=== PATIENT | female | born 1990 | race Caucasian/White ===

== ENCOUNTER 2025-04-04 04:06 | Observation (INO) ==
[2025-04-04] MEDS: ALBUT/IPRATROP 3MG/0.5MG NEB 3 ML VIAL NEB STA (04:32)
[2025-04-04 04:51] LABS: Hematocrit (blood only) 38.5 % (37.0-47.0); Hemoglobin 13.1 g/dl (12.0-16.0); Immature Granulocytes # (auto) 0.01 K/uL (0.01-0.20); Immature Granulocytes % (auto) 0.1 %; Mean Corpuscular Hemoglobin 29.7 pg (25.0-34.0); Mean Corpuscular Volume 87.3 fL (80.0-100.0); Platelet Count 370 K/uL (130-400); RDW Standard Deviation 37.4 fL (36.4-46.3); Red Blood Count 4.41 M/uL (4.20-5.40); White Blood Count 7.53 K/ul (4.8-10.8)
--- NOTE | 2025-04-04 04:56 | Emergency Department Note ---
Impression & Plan Asthma with exacerbation, Dyspnea ED Provider Note CHIEF COMPLAINT: Shortness of breath, wheezing HISTORY OF PRESENT ILLNESS: This 35-year-old female patient with past medical history of asthma who is normally on Symbicort for maintenance, but ran out of her inhaler presents to the emergency department via private vehicle for evaluation of shortness of breath and wheezing. Patient states symptoms started about 2 weeks ago. She recently moved here from [place]. The patient notes that she is an IV drug user (Cocaine) and is currently on antibiotics due to infections in her arms. The patient states she uses cocaine. Patient denies any fever. She has had some coughing. No chest pain. No abdominal pain, nausea, or vomiting. Patient denies any leg pain or swelling. No coughing up blood. No history of PE or DVT. Pt. has been using Albuterol without relief of her symptoms. History provided by: Patient REVIEW OF SYSTEMS: A 10 system review of systems was performed with positives and pertinent negatives listed in the history of present illness. All other systems were reviewed and are negative. ALLERGIES: NKDA PHYSICAL EXAM: VITALS: Vitals are noted on the nurse's note and reviewed by myself. GENERAL: This is a 35-year-old female, in no acute distress, nondiaphoretic, well-developed well-nourished. SKIN: Track treviño and shallow wounds on the bilateral anterior proximal forearms with no significant erythema or evidence of cellulitis. The skin was otherwise without rashes, erythema, edema, or bruising. There is no tenting of the skin. Capillary refill less than 2 seconds. HEAD: Normocephalic atraumatic. EYES: Conjunctivae without injection, sclerae without icterus. MOUTH: Mucous membranes moist. Tonsils are not enlarged. Pharynx without erythema or exudate. Uvula midline. Airway patent. Tongue does not deviate. NECK: Supple without nuchal rigidity. No lymphadenopathy. Cervical spine is nontender. No JVD. HEART: Regular rate and rhythm without murmurs gallops or rubs. LUNGS: Diffuse wheezing in all lung guzman. No retractions or accessory muscle use. Patient able to talk in complete sentences. ABDOMEN: Positive bowel sounds x 4. Soft, nontender, without masses or organomegaly. No guarding or rebound tenderness. MUSCULOSKELETAL: No muscle atrophy, erythema, or edema noted. Full range of motion without joint tenderness in all extremities. No tenderness to palpation. Normal gait. Strength 5/5 throughout. NEURO: Patient was alert and oriented to person place and time. No focal neurological deficits. An order was placed for continuous quality assurance monitor body. The monitor showed a normal sinus rhythm at a ventricular rate of 96 bpm, per my interpretation. EKG was reviewed by myself and found to be normal sinus rhythm at a rate of 91 beats per minute and per my interpretation reveals no ST elevation or depression. No T wave inversion. No prior EKG available for comparison. Imaging as interpreted by myself revealed no pneumonia, with radiologist interpretation as above. I agree with the radiologist's findings as based upon my independent interpretation. EMERGENCY DEPARTMENT COURSE: The patient was evaluated as above. The patient presents to the emergency department for shortness of breath and wheezing. She is an asthmatic and ran out of her Symbicort. Patient has not yet established with primary care. On examination, there is diffuse wheezing in all lung guzman. Patient O2 saturation 92 to 93% on room air. IV access obtained, labs were drawn. Patient was medicated with 125 mg IV Solu- Medrol, 1 g magnesium sulfate, DuoNeb treatment. Labs reviewed. Per my interpretation, no leukocytosis or anemia. No thrombocytopenia. hCG is negative. High-sensitivity troponin 4.7. Respiratory BioFire testing was completed and was negative. Chest x-ray, per my interpretation as above. No pneumonia. On reevaluation, the patient is about custodial through her magnesium infusion. She has had the Solu-Medrol and DuoNeb treatment. She remains diffusely wheezing with some rhonchi. O2 saturation is still 93% on room air. I did recommend additional medications. The patient was agreeable. Patient medicated with hour-long DuoNeb treatment. The case was signed out to Ro Mariscal PA-C pending re-evaluation after administration of hour long Duoneb treatment and Magnesium infusion. Please see her dictation regarding final disposition and plan. Case was discussed with the attending physician. I attest that I have personally reviewed the patient medication list. I attest that I have reviewed the patient's blood pressure and it was found to be elevated. Suspect this to be situational in nature. GCS: 15 In the evaluation and treatment of this patient the following differential diagnoses were entertained: Reactive airway disease, pneumonia, pneumothorax, COPD, CHF, infections, cardiac ischemia, pulmonary embolism, musculoskeletal, gastrointestinal, as well as other pathologies. The chart was completed utilizing [employer] Speech voice recognition software. Grammatical errors, random word insertions, pronoun errors, and incomplete sentences are an occasional consequence of this system due to software limitations, ambient noise, and hardware issues. Any formal questions or concerns about the content, text, or information contained within the body of this dictation should be directly addressed to the provider for clarification. Past Med/Surg History Problem List (Updated 04/04/25 @ 09:08 by Rishi Rosenberg MD) Skin ulcer of upper arm Eosinophilia Dyspnea (Acute) Asthma with exacerbation (Acute) Medical History (Updated 04/04/25 @ 09:08 by Rishi Rosenberg MD) HTN (hypertension) Depression History of hepatitis C IV drug abuse Tobacco dependence Asthma Surgical History (Updated 04/04/25 @ 08:59 by Rishi Rosenberg MD) No pertinent past surgical history Family History (Updated 04/04/25 @ 08:59 by Rishi Rosenberg MD) Denies family history of Asthma Social History (Updated 04/04/25 @ 09:01 by Rishi Rosenberg MD) Smoking Status: Unknown if ever smoked Tobacco Type: Cigarettes packs per day: 1; Hx Alcohol Use: No Hx Substance Use: Yes Non-Prescribed Medications: Crack / Cocaine and IV Drugs Last Used Substance: Days (ago) Last Used Substance Other:: 3 days ago Substance Use Type Other:: iv drug use Preferred Language: Faroese [employer] Supervisor Required: No Beliefs That Will Affect Care: None marital status: Single Current Living Situation: Significant Other current occupational status: unemployed How many Children do You have: 1 other: moved from [facility] to [place] to stay with girlfriend Feels Safe at Home: Yes Assistive Devices: None Allergies Allergies Allergy/AdvReac Type Severity Reaction Status Date / Time No Known Allergies Allergy Unverified 04/04/25 10:39 Results & Data (ED) Vital Signs Vital Signs - 24 hr 04/04/25 04:10 04/04/25 04:15 04/04/25 04:26 Temperature 36.5 C Temperature Source Temporal Artery Scan Pulse Rate 97 H 96 H Pulse Rate [Apical] Pulse Rate from SpO2 Sensor Pulse Rhythm [Apical] Respiratory Rate 28 H Respiratory Effort / Characteristics Respiratory Depth Respiratory Pattern Blood Pressure 145/91 H Blood Pressure [Right Arm] Blood Pressure Mean 109 Blood Pressure Mean [Right Arm] Pulse Oximetry 93 95 Oxygen Delivery Method Room Air Room Air Oxygen Flow Rate Sepsis Recent Fever Within 48 Hours No Sepsis New/Unexplained Change in Mental Status No Sepsis Action Taken by Nursing No Action Required 04/04/25 04:48 04/04/25 05:18 04/04/25 05:30 Temperature Temperature Source Pulse Rate 80 82 87 Pulse Rate [Apical] Pulse Rate from SpO2 Sensor 81 82 88 Pulse Rhythm [Apical] Respiratory Rate 24 14 14 Respiratory Effort / Characteristics Respiratory Depth Respiratory Pattern Blood Pressure 139/103 H 122/84 Blood Pressure [Right Arm] Blood Pressure Mean 115 96 Blood Pressure Mean [Right Arm] Pulse Oximetry 92 93 93 Oxygen Delivery Method Room Air Room Air Room Air Oxygen Flow Rate Sepsis Recent Fever Within 48 Hours Sepsis New/Unexplained Change in Mental Status Sepsis Action Taken by Nursing 04/04/25 05:45 04/04/25 05:45 04/04/25 06:00 Temperature Temperature Source Pulse Rate Pulse Rate [Apical] 81 83 Pulse Rate from SpO2 Sensor Pulse Rhythm [Apical] Regular Regular Respiratory Rate 17 20 Respiratory Effort / Characteristics Non-Labored Spontaneous Respiratory Depth Normal Respiratory Pattern Regular Blood Pressure Blood Pressure [Right Arm] 122/84 142/81 H Blood Pressure Mean Blood Pressure Mean [Right Arm] 96 101 Pulse Oximetry 93 93 93 Oxygen Delivery Method Room Air Room Air Room Air Oxygen Flow Rate 0 Sepsis Recent Fever Within 48 Hours Sepsis New/Unexplained Change in Mental Status Sepsis Action Taken by Nursing 04/04/25 07:00 04/04/25 07:00 04/04/25 07:00 Temperature Temperature Source Pulse Rate 76 75 Pulse Rate [Apical] Pulse Rate from SpO2 Sensor 74 74 Pulse Rhythm [Apical] Respiratory Rate 13 14 Respiratory Effort / Characteristics Respiratory Depth Respiratory Pattern Blood Pressure 131/79 Blood Pressure [Right Arm] Blood Pressure Mean 92 Blood Pressure Mean [Right Arm] Pulse Oximetry 97 97 Oxygen Delivery Method Oxygen Flow Rate Sepsis Recent Fever Within 48 Hours Sepsis New/Unexplained Change in Mental Status Sepsis Action Taken by Nursing 04/04/25 07:15 04/04/25 07:15 04/04/25 07:30 Temperature Temperature Source Pulse Rate 85 90 Pulse Rate [Apical] Pulse Rate from SpO2 Sensor 85 89 Pulse Rhythm [Apical] Respiratory Rate 18 18 Respiratory Effort / Characteristics Respiratory Depth Respiratory Pattern Blood Pressure 100/75 Blood Pressure [Right Arm] Blood Pressure Mean 83 Blood Pressure Mean [Right Arm] Pulse Oximetry 96 97 Oxygen Delivery Method Oxygen Flow Rate Sepsis Recent Fever Within 48 Hours Sepsis New/Unexplained Change in Mental Status Sepsis Action Taken by Nursing 04/04/25 07:30 04/04/25 07:57 04/04/25 08:00 Temperature Temperature Source Pulse Rate 108 H Pulse Rate [Apical] Pulse Rate from SpO2 Sensor 105 H Pulse Rhythm [Apical] Respiratory Rate 19 Respiratory Effort / Characteristics Respiratory Depth Respiratory Pattern Blood Pressure 128/81 137/86 Blood Pressure [Right Arm] Blood Pressure Mean 88 99 Blood Pressure Mean [Right Arm] Pulse Oximetry 93 Oxygen Delivery Method Oxygen Flow Rate Sepsis Recent Fever Within 48 Hours Sepsis New/Unexplained Change in Mental Status Sepsis Action Taken by Nursing 04/04/25 08:03 04/04/25 08:27 04/04/25 08:30 Temperature Temperature Source Pulse Rate 89 Pulse Rate [Apical] Pulse Rate from SpO2 Sensor 88 Pulse Rhythm [Apical] Respiratory Rate 15 14 Respiratory Effort / Characteristics Respiratory Depth Respiratory Pattern Blood Pressure 124/89 Blood Pressure [Right Arm] Blood Pressure Mean 99 Blood Pressure Mean [Right Arm] Pulse Oximetry 98 Oxygen Delivery Method Oxygen Flow Rate Sepsis Recent Fever Within 48 Hours Sepsis New/Unexplained Change in Mental Status Sepsis Action Taken by Nursing 04/04/25 08:42 Temperature Temperature Source Pulse Rate 86 Pulse Rate [Apical] Pulse Rate from SpO2 Sensor Pulse Rhythm [Apical] Respiratory Rate 22 Respiratory Effort / Characteristics Respiratory Depth Respiratory Pattern Blood Pressure Blood Pressure [Right Arm] Blood Pressure Mean Blood Pressure Mean [Right Arm] Pulse Oximetry Oxygen Delivery Method Oxygen Flow Rate Sepsis Recent Fever Within 48 Hours Sepsis New/Unexplained Change in Mental Status Sepsis Action Taken by Nursing Laboratory Data 04/04/25 04:15 04/04/25 04:15 Lab Results 04/04/25 04/04/25 Range/Units 04:15 04:49 WBC 7.53 (4.8-10.8) K/ul RBC 4.41 (4.20-5.40) M/uL Hgb 13.1 (12.0-16.0) g/dl Hct 38.5 (37.0-47.0) % MCV 87.3 (80.0-100.0) fL MCH 29.7 (25.0-34.0) pg MCHC 34.0 (32.0-36.0) g/dL RDW Std Deviation 37.4 (36.4-46.3) fL RDW Coeff of Annie 11.6 (11.5-14.5) % Plt Count 370 (130-400) K/uL MPV 9.4 (9.4-12.4) fL Immature Gran % (Auto) 0.1 % Neut % (Auto) 53.7 % Lymph % (Auto) 22.2 % Gilmer % (Auto) 6.5 % Eos % (Auto) 16.6 % Baso % (Auto) 0.9 % Neut # (Auto) 4.04 (1.40-6.50) K/uL Lymph # (Auto) 1.67 (1.20-3.40) K/uL Gilmer # (Auto) 0.49 (0.11-0.59) K/uL Eos # (Auto) 1.25 H (0.00-0.50) K/uL Baso # (Auto) 0.07 (0.00-0.20) K/uL Immature Gran # (Auto) 0.01 (0.01-0.20) K/uL Sodium 136 (136-145) mmol/L Potassium 3.4 L (3.5-5.1) mmol/L Chloride 102 (98-107) mmol/L Carbon Dioxide 25 (21-32) mmol/L Anion Gap 9 (3-11) BUN 10 (6-23) mg/dl Creatinine 0.76 (0.6-1.2) mg/dl Est Cr Clr Drug Dosing 109.4 ml/min eGFR 105.38 BUN/Creatinine Ratio 13.2 (10-20) Glucose 102 H (70-99(Fasting)) mg/dl Calcium 9.5 (8.6-10.3) mg/dl Total Bilirubin 0.3 (0.2-1.0) mg/dl AST 13 (13-39) U/L ALT 7 (7-52) U/L Alkaline Phosphatase 74 (34-104) U/L Troponin I High Sens 4.7 (0-14) pg/ml Total Protein 7.8 (6.0-8.3) gm/dl Albumin 4.0 (3.4-5.0) gm/dl Globulin 3.8 (2.5-4.0) gm/dl Albumin/Globulin Ratio 1.1 (0.9-2) HCG, Qual Negative (Negative) Adenovirus (PCR) Not Detected (NotDetected) B. pertussis DNA (PCR) Not Detected (NotDetected) B.parapertussis DNA PCR Not Detected (NotDetected) C. pneumoniae DNA (PCR) Not Detected (NotDetected) Coronavirus OC43 (PCR) Not Detected (NotDetected) Coronavirus HKU1 (PCR) Not Detected (NotDetected) Coronavirus 229E (PCR) Not Detected (NotDetected) SARS-CoV-2 (PCR) Not Detected (NotDetected) Coronavirus NL63 (PCR) Not Detected (NotDetected) Human Metapneumovir PCR Not Detected (NotDetected) Influenza Type A (PCR) Not Detected (NotDetected) Influenza Type B (PCR) Not Detected (NotDetected) M. pneumoniae (PCR) Not Detected (NotDetected) Parainfluenza 1 (PCR) Not Detected (NotDetected) Parainfluenza 2 (PCR) Not Detected (NotDetected) Parainfluenza 3 (PCR) Not Detected (NotDetected) Parainfluenza 4 (PCR) Not Detected (NotDetected) RSV (PCR) Not Detected (NotDetected) Entero/Rhino (PCR) Not Detected (NotDetected) Administered Medications Albuterol (Albut/Ipratrop 3mg/0.5mg Neb 3 Ml Vial) 3 ml NEB QIDR [facility]; Protocol Stop: 05/04/25 10:59 Last Admin: 04/04/25 17:57 Dose: 3 ml Documented By: Admin: 04/04/25 14:57 Dose: 3 ml Documented By: Admin: 04/04/25 11:27 Dose: 3 ml Documented By: CAP Aripiprazole (Aripiprazole 10 Mg Tab) 10 mg PO QAM [facility] Stop: 05/04/25 11:29 Last Admin: 04/04/25 11:31 Dose: 10 mg Documented By: CAP Buprenorphine/Naloxone (Buprenorphine/Naloxone 8/2 Mg Tab) 1 tab SL TID [facility] Stop: 05/04/25 10:59 Last Admin: 04/04/25 21:18 Dose: 1 tab Documented By: supriya Admin: 04/04/25 16:22 Dose: 1 tab Documented By: Admin: 04/04/25 11:30 Dose: 1 tab Documented By: TAMMY Cephalexin HCl (Cephalexin 500 Mg Cap) 500 mg PO QID [facility]; Protocol Stop: 04/11/25 08:59 Last Admin: 04/04/25 21:18 Dose: 500 mg Documented By: supriya Admin: 04/04/25 16:23 Dose: 500 mg Documented By: Admin: 04/04/25 11:26 Dose: 500 mg Documented By: TAMMY Doxycycline Hyclate (Doxycycline Hyclate 100 Mg Cap) 100 mg PO BID [facility] Stop: 04/11/25 08:59 Last Admin: 04/04/25 21:18 Dose: 100 mg Documented By: supriya Admin: 04/04/25 11:27 Dose: 100 mg Documented By: TAMMY Fluoxetine HCl (Fluoxetine Hcl 20 Mg Cap) 40 mg PO QAM [facility] Stop: 05/04/25 11:29 Last Admin: 04/04/25 11:32 Dose: 40 mg Documented By: TAMMY Fluticasone/Vilanterol (Fluticasone/Vilanterol 100/25mcg 14 Puffs/Inhaler) 1 puffs INH DAILY [facility] Stop: 05/04/25 11:29 Last Admin: 04/04/25 11:32 Dose: 1 puffs Documented By: TAMMY Guaifenesin (Guaifenesin 600 Mg Tabcr) 1,200 mg PO Q12 [facility] Stop: 05/04/25 11:29 Last Admin: 04/04/25 21:18 Dose: 1,200 mg Documented By: supriya Admin: 04/04/25 11:26 Dose: 1,200 mg Documented By: TAMMY Methylprednisolone 40 mg/ (Syringe) 0.64 mls @ 1.5 mls/min IV Q12H [facility] Stop: 05/04/25 11:59 Last Admin: 04/04/25 11:08 Dose: 1.5 mls/min Documented By: TAMMY Lisinopril (Lisinopril 10 Mg Tab) 10 mg PO QAM [facility] Stop: 05/04/25 11:29 Last Admin: 04/04/25 11:31 Dose: 10 mg Documented By: TAMMY Miscellaneous (Remove Nicoderm Patch) 1 each N/A DAILY@0859 [facility] Stop: 05/04/25 11:28 Last Admin: 04/04/25 11:42 Dose: Not Given Documented By: TAMMY Nicotine (Nicotine 21 Mg/24 Hr Tdsy) 1 patch TD QAM [facility] Stop: 05/04/25 11:29 Last Admin: 04/04/25 11:07 Dose: 1 patch Documented By: TAMMY Topiramate (Topiramate 25 Mg Tab) 25 mg PO HS JEFF Stop: 05/04/25 20:59 Last Admin: 04/04/25 21:18 Dose: 25 mg Documented By: supriya Discontinued Medications Albuterol (Albut/Ipratrop 3mg/0.5mg Neb 3 Ml Vial) 3 ml NEB NOW STA; Protocol Stop: 04/04/25 04:16 Last Admin: 04/04/25 04:32 Dose: 3 ml Documented By: CORY Albuterol (Albut/Ipratrop 3mg/0.5mg Neb 3 Ml Vial) 12 ml NEB ONE ONE; Protocol Stop: 04/04/25 06:22 Last Admin: 04/04/25 06:50 Dose: 12 ml Documented By: CORY Magnesium Sulfate/Dextrose (Magnesium Sulfate / D5w) 1 gm in 100 mls @ 100 mls/hr IV NOW STA Stop: 04/04/25 05:56 Last Infusion: 04/04/25 06:40 Dose: Infused Documented By: Admin: 04/04/25 05:40 Dose: 100 mls/hr Documented By: CORY Methylprednisolone (Methylprednisolone 125 Mg/2 Ml Vial) 125 mg IV NOW STA Stop: 04/04/25 04:53 Last Admin: 04/04/25 05:40 Dose: 125 mg Documented By: CORY Miscellaneous Information (Patient's Allergy Info Needs Entered) 1 each N/A NOW STA Stop: 04/04/25 09:29 Last Admin: 04/04/25 10:46 Dose: Not Given Documented By: TAMMY Miscellaneous Information (Patient's Allergy Info Needs Entered) 1 each N/A Q1H JEFF Stop: 04/04/25 12:31 Last Admin: 04/04/25 10:46 Dose: Not Given Documented By: TAMMY Potassium Chloride (Potassium Chloride 10 Meq Tabcr) 40 meq PO NOW STA Stop: 04/04/25 08:21 Last Admin: 04/04/25 09:07 Dose: 40 meq Documented By: KEVIN Imaging Data Radiologist's Impression: Chest X-Ray 04/04/25 04:15 EXAM: XR chest 1V portable CLINICAL HISTORY: Dyspnea TECHNIQUE: An X-ray image of the chest was obtained in the AP projection. COMPARISON: None. FINDINGS: The lungs are clear and well expanded, with no pulmonary infiltrate or pleural effusion. The cardiomediastinal silhouette is within normal limits. No acute osseous abnormality is identified. IMPRESSION: 1. No acute cardiopulmonary disease. Electronically signed by Lane Breen 04-04-2025 06:56 AM Discharge Plan Visit Data Chief Complaint: Shortness of Breath/Dyspnea Stated Complaint: SOB, ASTHMA ED Provider: Bree Roth ED Midlevel Provider: Ro Mariscal Discharge Problem: Asthma with exacerbation, Dyspnea Patient Disposition: Admitted As Inpatient Condition: Good Discharge Instructions Interventions: ED Discharge Assessment Last Done: 04/04/25 09:20
[2025-04-04 05:07] LABS: Alanine Aminotransferase 7.0 U/L (7-52); Albumin Level 4.0 gm/dl (3.4-5.0); Alkaline Phosphatase 74.0 U/L (34-104); Blood Urea Nitrogen 10.0 mg/dl (6-23); Calcium 9.5 mg/dl (8.6-10.3); Carbon Dioxide 25.0 mmol/L (21-32); Chloride 102.0 mmol/L (98-107); Creatinine Clr Calc Pharmacy 109.4 ml/min; Glucose 102.0 mg/dl (70-99(Fasting)); Potassium 3.4 mmol/L (3.5-5.1); Pregnancy Test, Serum Negative (Negative)
[2025-04-04 05:15] LABS: Albumin Globulin Ratio 1.1 (0.9-2); Anion Gap 9.0 (3-11); Bilirubin,Total 0.3 mg/dl (0.2-1.0); Globulin 3.8 gm/dl (2.5-4.0); Sodium 136.0 mmol/L (136-145); Total Protein 7.8 gm/dl (6.0-8.3)
[2025-04-04] MEDS: MAGNESIUM SULFATE / D5W 1 GM/100 ML BAG IV STA (05:40)
[2025-04-04 05:46] LABS: Chlamydia pneumoniae PCR Not Detected (NotDetected); Coronavirus 229E PCR Not Detected (NotDetected); Coronavirus CoV-2 (COVID19)PCR Not Detected (NotDetected); Coronavirus HKU1 PCR Not Detected (NotDetected); Coronavirus NL63 PCR Not Detected (NotDetected); Coronavirus OC43PCR Not Detected (NotDetected); Human Metapneumovirus PCR Not Detected (NotDetected); Parainfluenza Virus 1 PCR Not Detected (NotDetected); Parainfluenza Virus 2 PCR Not Detected (NotDetected); Parainfluenza Virus 3 PCR Not Detected (NotDetected); Parainfluenza Virus 4 PCR Not Detected (NotDetected); Respiratory Syncytial VirusPCR Not Detected (NotDetected); Rhinovirus/Enterovirus PCR Not Detected (NotDetected)
[2025-04-04] MEDS: ALBUT/IPRATROP 3MG/0.5MG NEB 3 ML VIAL NEB ONE (06:50)
--- NOTE | 2025-04-04 06:57 | XRay Report ---
EXAM: XR chest 1V portable CLINICAL HISTORY: Dyspnea TECHNIQUE: An X-ray image of the chest was obtained in the AP projection. COMPARISON: None. FINDINGS: The lungs are clear and well expanded, with no pulmonary infiltrate or pleural effusion. The cardiomediastinal silhouette is within normal limits. No acute osseous abnormality is identified. IMPRESSION: 1. No acute cardiopulmonary disease. Electronically signed by Lane Breen 04-04-2025 06:56 AM
--- NOTE | 2025-04-04 07:05 | Emergency Department Note ---
ED Visit Note The patient was signed out to me during shift change by Mey Ma PA-C at 07:00. In short the patient has a PMH of asthma and presents with SOB and wheezing. She is typically on Symbicort for maintenance but she is currently out of it. She has been using albuterol inhaler with minimal improvement. See Mey Ma PA-C note for the full workup and history. Upon shift change the patient had received 3 mL DuoNeb, 125 mg Solumedrol, 1g Mg, and a 12 ml DuoNeb. I reevaluated the patient who continues to have a diffuse expiratory wheeze. Patient also reports she is feeling better but she still does feel mildly shortness of breath and wheezing discomfort. Laboratory workup and chest x-ray show no acute abnormality. The patient has not improved with the outlined treatment and I do think would benefit from admission for continuous treatment overnight. Patient is agreeable to this plan. O2 saturation ranging from 90-96% on room air. All other vitals remained stable. The patient was admitted in stable condition. Consultation: On-call [facility] hospitalist - Presented the patient to the provider and discussed minimal improvement with the treatment plan. Patient does have a history of asthma and does appear to be having an exacerbation. Due to her presentation and minimal improvement I do believe that she would benefit from being admitted to medicine for continuous treatment overnight. Also discussed with them the patient's history of IV drug use with ulcerated wounds on the bilateral arms. They are agreeable to evaluating the patient and admitting her.
--- NOTE | 2025-04-04 09:05 | History & Physical Report ---
Date of Service April 04, 2025 Assessment & Plan (1) Asthma with exacerbation: (2) IV drug abuse: (3) Tobacco dependence: (4) History of hepatitis C: (5) Depression: (6) HTN (hypertension): (7) Eosinophilia: (8) Skin ulcer of upper arm: Plan 35yo female with history of asthma diagnosed ~2 years ago in [facility], IV drug abuse (cocaine), tobacco dependence, prior HepC infection s/p treatment, and HTN presents with 2 weeks of progressive cough, chest congestion, chest t ightness, wheezing, and shortness of breath - symptoms c/w asthma exacerbation. 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 #IV drug abuse with multiple ulcers b/l antecubital region with mild infection on right - -wound care consult for ulcers -keflex/doxy -limited u/s of right antecubital region to r/o abscess -was drug-free for about 2 years then had relapse #chronic suboxone use - -cont suboxone 8mg TID #HTN - -reportedly on HCTZ & lisinopril -cont lisinopril; hold HCTZ for now #tobacco dependence - -smoking cessation counseling -nicoderm patch 21mg/day #depression/anxiety - -cont topamax, prozac, abilify -psych consult to get her linked with local services -is from [facility], but planning to live in [facility] #h/o HepC infection - -s/p treatment -LFTs wnl -verbal consent obtained to perform HIV testing in am #hypokalemia - -replace with PO supplementation -repeat BMP am #eosinophilia - -recheck CBC w/ diff in am -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 given she is new to [place] (just moved from [facility]) will need application for Medicaid, new PCP, etc. place on observation status for now History of Present Illness Chief Complaint: cough, chest tightness, wheezing, shortness of breath Primary Care Provider: NO PCP 35yo female with history of asthma diagnosed ~2 years ago in [facility], IV drug abuse (cocaine), tobacco dependence, prior HepC infection s/p treatment, and HTN presents with 2 weeks of progressive cough, chest congestion, chest tightness, wheezing, and shortness of breath. She is now dyspneic with walking only short distances (10-15 feet or less). She denies having had URI symptoms except for sore throat due to coughing. No fevers. She had previously been on symbicort for maintenance treatment but ran out of such weeks ago. She has been using albuterol MDI at home without relief of symptoms. Additionally she just finished a course of amoxicillin TID for 2 weeks for skin infection of both elbow regions due to purulent drainage. This is the area where she typically injects IV cocaine. The purulence has improved with the amoxicillin. In the ER today she had IV solumedrol along with hour-long duoneb with some relief of symptoms. Allergies Allergy/AdvReac Type Severity Reaction Status Date / Time No Known Allergies Allergy Unverified 04/04/25 10:39 Past Med/Surg History Problem List (Updated 04/04/25 @ 09:08 by Rishi Rosenberg MD) Skin ulcer of upper arm Eosinophilia Dyspnea (Acute) Asthma with exacerbation (Acute) Medical History (Updated 04/04/25 @ 09:08 by Rishi Rosenberg MD) HTN (hypertension) Depression History of hepatitis C IV drug abuse Tobacco dependence Asthma Surgical History (Updated 04/04/25 @ 08:59 by Rishi Rosenberg MD) No pertinent past surgical history Family History (Updated 04/04/25 @ 08:59 by Rishi Rosenberg MD) Denies family history of Asthma Social History (Updated 04/04/25 @ 09:01 by Rishi Rosenberg MD) Smoking Status: Unknown if ever smoked Tobacco Type: Cigarettes packs per day: 1; Hx Alcohol Use: No Hx Substance Use: Yes Non-Prescribed Medications: Crack / Cocaine and IV Drugs Last Used Substance: Days (ago) Last Used Substance Other:: 3 days ago Substance Use Type Other:: iv drug use Preferred Language: [place] [employer] [employer] Required: No Beliefs That Will Affect Care: None marital status: Single Current Living Situation: Significant Other current occupational status: unemployed How many Children do You have: 1 other: moved from [facility] to [place] to stay with girlfriend Feels Safe at Home: Yes Assistive Devices: None Review of Systems Review of Systems: gen - no fevers or chills; eating normally HENT - mild sore throat, no URI symptoms otherwise CV - chest tightness from asthma flare pulm - cough, congestion, wheezing, dyspnea and MCMAHON GI - no nausea, vomiting, diarrhea, abd pain - no LUTS musculo - no joint pains skin - recent skin infection antecubital region b/l endo - no diabetes psych - depression/anxiety/drug abuse Physical Exam Physical Exam: gen - NAD, no respiratory distress, coughing at times eyes - PERRL HENT - Tms clear b/l; nose clear; mouth - poor dentition; MMM neck - no JVD, no lymph nodes, no goiter heart - tachy, s1 s2, no murmur lungs - diffuse wheezes b/l all lung segments; mildly decreased BS bases; no increased work of breathing abd - soft NT ND BS+; no HSM ext - no edema, pulses 2+ b/l skin - track treviño on feet; track treviño with ulcerations b/l antecubital regions, worse on right vs left; minimal purulent material in the ulcers on right; firm skin surrounding all of the ulcers b/l; no palpable abscess neuro - DTRs 2+ b/l upper & lower exts psych - a/o x 3, affect wnl Results & Data Results & Data Vital Signs (Past 12 Hours) Vital Signs Temp Pulse Pulse Resp BP BP Pulse Ox 04/04/25 08:42 86 22 04/04/25 08:30 124/89 04/04/25 08:27 14 04/04/25 08:03 89 15 98 04/04/25 08:00 137/86 04/04/25 07:57 108 H 19 93 04/04/25 07:30 128/81 04/04/25 07:30 90 18 97 04/04/25 07:15 100/75 04/04/25 07:15 85 18 96 04/04/25 07:00 75 14 97 04/04/25 07:00 131/79 04/04/25 07:00 76 13 97 04/04/25 06:00 83 20 142/81 H 93 04/04/25 05:45 81 17 122/84 93 04/04/25 05:45 93 04/04/25 05:30 87 14 122/84 93 04/04/25 05:18 82 14 93 04/04/25 04:48 80 24 139/103 H 92 04/04/25 04:26 96 H 04/04/25 04:15 95 04/04/25 04:10 36.5 C 97 H 28 H 145/91 H 93 O2 Del Method O2 Flow Rate 04/04/25 08:42 04/04/25 08:30 04/04/25 08:27 04/04/25 08:03 04/04/25 08:00 04/04/25 07:57 04/04/25 07:30 04/04/25 07:30 04/04/25 07:15 04/04/25 07:15 04/04/25 07:00 04/04/25 07:00 04/04/25 07:00 04/04/25 06:00 Room Air 04/04/25 05:45 Room Air 04/04/25 05:45 Room Air 0 04/04/25 05:30 Room Air 04/04/25 05:18 Room Air 04/04/25 04:48 Room Air 04/04/25 04:26 04/04/25 04:15 Room Air 04/04/25 04:10 Room Air Laboratory Results Laboratory Results - last 24 hr 04/04/25 04/04/25 04:15 04:49 WBC 7.53 RBC 4.41 Hgb 13.1 Hct 38.5 MCV 87.3 MCH 29.7 MCHC 34.0 RDW Std Deviation 37.4 RDW Coeff of Annie 11.6 Plt Count 370 MPV 9.4 Immature Gran % (Auto) 0.1 Neut % (Auto) 53.7 Lymph % (Auto) 22.2 Miller % (Auto) 6.5 Eos % (Auto) 16.6 Baso % (Auto) 0.9 Neut # (Auto) 4.04 Lymph # (Auto) 1.67 Miller # (Auto) 0.49 Eos # (Auto) 1.25 H Baso # (Auto) 0.07 Immature Gran # (Auto) 0.01 Sodium 136 Potassium 3.4 L Chloride 102 Carbon Dioxide 25 Anion Gap 9 BUN 10 Creatinine 0.76 Est Cr Clr Drug Dosing 109.4 eGFR 105.38 BUN/Creatinine Ratio 13.2 Glucose 102 H Calcium 9.5 Total Bilirubin 0.3 AST 13 ALT 7 Alkaline Phosphatase 74 Troponin I High Sens 4.7 Total Protein 7.8 Albumin 4.0 Globulin 3.8 Albumin/Globulin Ratio 1.1 HCG, Qual Negative Adenovirus (PCR) Not Detected B. pertussis DNA (PCR) Not Detected B.parapertussis DNA PCR Not Detected C. pneumoniae DNA (PCR) Not Detected Coronavirus OC43 (PCR) Not Detected Coronavirus HKU1 (PCR) Not Detected Coronavirus 229E (PCR) Not Detected SARS-CoV-2 (PCR) Not Detected Coronavirus NL63 (PCR) Not Detected Human Metapneumovir PCR Not Detected Influenza Type A (PCR) Not Detected Influenza Type B (PCR) Not Detected M. pneumoniae (PCR) Not Detected Parainfluenza 1 (PCR) Not Detected Parainfluenza 2 (PCR) Not Detected Parainfluenza 3 (PCR) Not Detected Parainfluenza 4 (PCR) Not Detected RSV (PCR) Not Detected Entero/Rhino (PCR) Not Detected Diagnostic Findings Chest X-Ray 04/04/25 04:15 EXAM: XR chest 1V portable CLINICAL HISTORY: Dyspnea TECHNIQUE: An X-ray image of the chest was obtained in the AP projection. COMPARISON: None. FINDINGS: The lungs are clear and well expanded, with no pulmonary infiltrate or pleural effusion. The cardiomediastinal silhouette is within normal limits. No acute osseous abnormality is identified. IMPRESSION: 1. No acute cardiopulmonary disease. Electronically signed by Lane Breen 04-04-2025 06:56 AM ECG Additional Comments: EKG - my reading - NSR, no ST changes PG Care Time/CCT Total # of Minutes Spent Total Time Spent with Patient: Total time spent is greater than 50% in coordination of care (as documented) at patient's floor/unit and/or counseling patient: Coding Level of Care Code 96628 INT INP/OBS CARE 3/75MIN Diagnoses Asthma with exacerbation J45.901 IV drug abuse F19.10 Tobacco dependence F17.200 History of hepatitis C Z86.19 Depression F32.A HTN (hypertension) I10 Eosinophilia D72.10 Skin ulcer of upper arm L98.A199
[2025-04-04] MEDS: POTASSIUM CHLORIDE 10 MEQ TABCR PO STA (09:07)
[2025-04-04] MEDS ORDERED: ACETAMINOPHEN 325 MG TAB PO PRN (09:20)
[2025-04-04] MEDS ORDERED: ONDANSETRON INJ 2 MG/ML 2 ML VIAL IV PRN (09:20)
[2025-04-04] MEDS ORDERED: MELATONIN 3 MG TAB PO PRN (09:20)
--- NOTE | 2025-04-04 09:49 | Electrocardiogram Report ---
Test Reason : Blood Pressure : */* mmHG Vent. Rate : 91 BPM Atrial Rate : 91 BPM P-R Int : 144 ms QRS Dur : 76 ms QT Int : 368 ms P-R-T Axes : 56 70 51 degrees QTcB Int : 452 ms Normal sinus rhythm Normal ECG No previous ECGs available Confirmed by Juan Lane ([id number]) on 04/04/2025 9:48:50 AM Referred By: REFERRED SELF Confirmed By: Juan Lane
--- NOTE | 2025-04-04 11:03 | Ultrasound Report ---
US extremity non-vascular ltd CLINICAL HISTORY: right antecubital region ulcers; abscess? COMPARISON STUDY: None FINDINGS: There is soft tissue edema in the region of the antecubital fossa with no abscess or hemato ma seen. IMPRESSION: No abscess seen. ACT 112: Negative or not required by law. Electronically signed by: Ludin Key M.D. 04/04/2025 11:02 AM
[2025-04-04] MEDS: NICOTINE 21 MG/24 HR TDSY TD SCH (11:07)
[2025-04-04] MEDS: guaiFENesin 600 MG TABCR PO SCH (11:26)
[2025-04-04] MEDS: DOXYCYCLINE HYCLATE 100 MG CAP PO SCH (11:27)
[2025-04-04] MEDS: ALBUT/IPRATROP 3MG/0.5MG NEB 3 ML VIAL NEB SCH (11:27)
[2025-04-04] MEDS: BUPRENORPHINE/NALOXONE 8/2 MG TAB SL SCH (11:30)
[2025-04-04] MEDS: FLUTICASONE/VILANTEROL 100/25MCG 14 PUFFS/INHALER INH SCH (11:32)
[2025-04-04] MEDS: REMOVE NICODERM PATCH SCH (11:42)
[2025-04-04] MEDS: TOPIRAMATE 25 MG TAB PO SCH (21:18)
[2025-04-05 04:20] VITALS: TEMP 97.7
[2025-04-05 07:07] LABS: Hematocrit (blood only) 37.1 % (37.0-47.0); Hemoglobin 12.4 g/dl (12.0-16.0); Immature Granulocytes # (auto) 0.17 K/uL (0.01-0.20); Immature Granulocytes % (auto) 1.0 %; Mean Corpuscular Hemoglobin 29.7 pg (25.0-34.0); Mean Corpuscular Volume 89.0 fL (80.0-100.0); Platelet Count 420 K/uL (130-400); RDW Standard Deviation 38.5 fL (36.4-46.3); Red Blood Count 4.17 M/uL (4.20-5.40); White Blood Count 17.17 K/ul (4.8-10.8)
[2025-04-05 07:33] LABS: Anion Gap 7.0 (3-11); Blood Urea Nitrogen 15.0 mg/dl (6-23); Calcium 9.8 mg/dl (8.6-10.3); Carbon Dioxide 25.0 mmol/L (21-32); Chloride 104.0 mmol/L (98-107); Creatinine Clr Calc Pharmacy 148.6 ml/min; Glucose 106.0 mg/dl (70-99(Fasting)); Potassium 4.6 mmol/L (3.5-5.1); Sodium 136.0 mmol/L (136-145)
[2025-04-05] MEDS: ENOXAPARIN INJ 40 MG/0.4 ML SYR SQ SCH (07:51)
[2025-04-05 08:42] LABS: Hemoglobin A1C 5.5 % (4.5-5.6)
[2025-04-05] MEDS: busPIRone 5 MG TAB PO SCH (09:14)
[2025-04-05] MEDS: BACLOFEN 10 MG TAB PO SCH (09:16)
[2025-04-05 11:18] VITALS: BP 121/79
[2025-04-05] MEDS: INFLUENZA VACC TS2025-26(6m+)/PF (IIV3) 0.5mL Syr IM ONE (12:56)
[2025-04-05 14:50] VITALS: PULSE 74; RESP 16; O2SAT 95
[2025-04-05] MEDS ORDERED: ALBUTEROL HFA 8 GM INHALER INH PRN (16:40)
--- NOTE | 2025-04-05 17:06 | Discharge Summary ---
Discharge Summary Date of Service date of admission - April 04, 2025 date of discharge - April 05, 2025 Principal Dx & Hospital Course #1 = Principal Diagnosis (1) Asthma with exacerbation: (2) IV drug abuse: (3) Tobacco dependence: (4) History of hepatitis C: (5) Depression: (6) HTN (hypertension): (7) Eosinophilia: (8) Skin ulcer of upper arm: Plan 35yo female with history of asthma diagnosed ~2 years ago in [facility], IV drug abuse (cocaine), tobacco dependence, prior HepC infection s/p treatment, and HTN presents with 2 weeks of progressive cough, chest congestion, chest tightness, wheezing, and shortness of breath - symptoms c/w asthma exacerbation. 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 -at discharge advised the following: -prednisone taper -albuterol via spacer device prn -Breo 1 puff daily for maintenance (we attempted to get samples for her until her insurance was activated in [place] but samples were not available) #IV drug abuse with multiple ulcers b/l antecubital region with mild infection on right - -wound care team was consulted -they advised for the antecubital regions b/l to use Aquacel Ag with Tegaderm dressings -change every 3 days -keflex/doxycycline courses were recommended; received ~2 days of both antibiotics here, then will complete 5 more days of such at home -limited u/s of right antecubital region did NOT show any abscess -unfortunately she had a relapse after a drug-free period of about 2 years -should f/u with the [facility] post-discharge to ensure healing #chronic suboxone use - -cont suboxone 8mg TID -recommended [facility] to obtain suboxone moving forward #HTN - -reportedly had been on HCTZ & lisinopril prior to this admission -was continued on lisinopril but her HCTZ was placed on hold while here & at discharge -BP was 121/79 at discharge #tobacco dependence - -smoking cessation counseling given -nicoderm patch 21mg/day used during the stay #depression/anxiety - -cont topsanthosh, zashanta, cruz -behavioral health liaison consult was obtained to get her linked with local services -is from [facility], but planning to live in [place] moving forward -once she has active Medicaid insurance in [place] she can get established with psychiatry locally #h/o HepC infection - -s/p treatment in the past -LFTs wnl during the stay -HIV testing was negative #hypokalemia - -replaced and level wnl on day of discharge #eosinophilia - -on initial CBC her eosinophils were 16.6% (1.25 #) -after 24 hours of steroid her eosinophils were nearly 0% -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 prednisone taper 2. doxycycline BID x 5 days 3. keflex TID x 5 days 4. Breo 1 puff daily 5. albuterol via spacer prn Admission HPI Per Admitting Provider 35yo female with history of asthma diagnosed ~2 years ago in [facility], IV drug abuse (cocaine), tobacco dependence, prior HepC infection s/p treatment, and HTN presents with 2 weeks of progressive cough, chest congestion, chest tightness, wheezing, and shortness of breath. She is now dyspneic with walking only short distances (10-15 feet or less). She denies having had URI symptoms except for sore throat due to coughing. No fevers. She had previously been on symbicort for maintenance treatment but ran out of such weeks ago. She has been using albuterol MDI at home without relief of symptoms. Additionally she just finished a course of amoxicillin TID for 2 weeks for skin infection of both elbow regions due to purulent drainage. This is the area where she typically injects IV cocaine. The purulence has improved with the amoxicillin. In the ER today she had IV solumedrol along with hour-long duoneb with some relief of symptoms. Discharge Exam gen - NAD, looks better today HENT - poor dentition; MMM neck - no JVD heart - RRR, s1 s2, no murmur lungs - diffuse wheezes b/l MUCH improved today; improved airation b/l bases; no increased work of breathing abd - soft NT ND BS+; no HSM ext - no edema, pulses 2+ b/l skin - track treviño with ulcerations b/l antecubital regions, worse on right vs left; minimal purulent material in the ulcers on right; firm skin surrounding all of the ulcers b/l; no palpable abscess psych - a/o x 3 Discharge Plan Discharge Items Patient Disposition: Home - Self-Care Reason For Visit: ASTHMA EXACERBATION Discharge Diagnosis: 1. asthma exacerbation - improved 2. skin ulcers both arms with possible infection 3. high blood pressure Condition on Discharge: Good Activity: As commented below Activity Comment: gradually increase your activities as tolerated over the next week Non-emergency contact: Primary Care Provider and Right Of Way Manager Call non-emergency contact if: you have any medication questions and your symptoms worsen Follow-up/Referrals: Brijesh Alvarez MD [Physician] - (we will make a referral to [facility] for you ) Reed Gunderson DO [Physician] - 04/10/25 11:00 am (*Hospital follow up appointment* You will need to schedule an establish care appointment when you go to your hospital follow up appointment) Diet: Regular Addtl Attending Provider Instructions: Ms Weeks, Freddie were hospitalized for an asthma exacerbation. You responded quickly to IV steroids, nebulizer treatments, and supportive care. Your wheezing improved and your shortness of breath is much better. In addition we had the wound care nurse see you for your ulcers on your arms. They are recommending dressing changes every 3 days. See their instructions on how to care for the ulcers on your arms. We did give you 2 antibiotics for the arms as there appeared to be some infection of the ulcers. Ultrasound of your right arm did not show an abscess. Recommendations - 1. prednisone course for the asthma - start TOMORROW, take with food 2. Breo inhaler - 1 puff once daily starting TOMORROW. Rinse your mouth with water after using it, then spit the water out. This is your asthma "controller agent" to help prevent asthma flare-ups 3. antibiotics for infection of arms - -cephalexin 500mg four times daily x 5 days; start in the morning -doxycycline 100mg twice daily x 5 days; start in the morning -most common side effect for each antibiotic - diarrhea -occasionally doxycycline causes stomach upset/reflux -rarely doxycycline can cause a rash if you go out in the sun while taking the antibiotic; thus, be sure to use sunscreen and cover up well over the next 7 days 4. albuterol inhaler - -use with plastic spacer device - see handout on how to use the spacer -you can take 2 puffs every 4 hours as needed for cough/wheezing/shortness of breath -as you recover over the next few days you may need to use the albuterol several times per day for your symptoms -as you resolve the illness the albuterol use will be less and less 5. please talk with your new family doctor about ways to help you quit smoking 6. there is a clinic in [place] called "[facility]" that may be able to prescribe your Suboxone for you. Here is the clinic contact information and address. You will need to call to schedule an appointment with them. [address], [address] [place], [place] [id number] 7. wound care for your arms - see separate section from the wound care nurse. You should follow-up with either the [facility] in [place] OR the [facility] in [place]. Ideally you see one of these clinics in the next 1-2 weeks. 8. To help secure insurance (Medicaid) in [place] please see the following. You also received a local phone number from our social workers to help with the insurance process. On your computer or phone please visit --> [email or web address] This is a website where you can apply for the insurance. Ultimately you will need to cancel your [facility] Medicaid. That phone number is [phone]. 9. We will try to get you an appointment with [facility] to follow your asthma. Return to [facility] if - -you have fevers over 100 degrees -your ulcers on your arms worsen despite the wound care and the antibiotics -your breathing worsens -you have severe diarrhea (3 or more liquid stools in 24 hours) -any other concerns It was our pleasure to care for you! Pending Studies at Discharge: No Stand-Alone Forms: [facility], Work/School Release, Smoking Cessation Medications and DC Order Prescriptions: New lisinopril 10 mg Tablet 10 mg PO QAM Qty: 1 0RF buprenorphine-naloxone 8-2 mg Tablet, Sublingual 1 tab sublingual TID Qty: 0 0RF fluticasone furoate-vilanterol [Breo Ellipta] 100-25 mcg/dose Blister With Device 1 inh inhalation DAILY Qty: 1 0RF topiramate 25 mg Tablet 25 mg PO HS Qty: 1 0RF albuterol sulfate [Ventolin HFA] 90 mcg/actuation HFA aerosol inhaler 2 inh inhalation Q4H PRN (Reason: shortness of breath or wheezing or cough) Qty: 6.7 0RF Rx Instructions: use with spacer device No Action buspirone 10 mg tablet 10 mg PO BID Qty: 180 1RF aripiprazole [Abilify] 10 mg tablet 10 mg PO QAM Qty: 90 1RF fluoxetine 40 mg capsule 40 mg PO QAM Qty: 90 1RF bupropion HCl 150 mg tablet extended release 24 hr 150 mg PO QAM Qty: 30 2RF Discharge Orders: Discharge Order (Routine); Ordered 04/05/25 Ordered By: Rishi Milan/Other Patient Handouts: Quitting Smoking, Understanding Asthma, Using an Inhaler with a Spacer, Asthma COPD Trigger Control, Controlling Your Asthma Admission Data Admit Date/Time: 04/04/25 08:55 Attending Provider: Rishi Rosenberg Admit Provider: Rishi Rosenberg Primary Care Provider: PCP,NO Other Providers: Rishi Rosenberg Other Interventions: Discharge Summary Assessment (RN) Last Done: 04/05/25 16:52 Hospital Stay Data Consultations Behavioral Health Liaison Diagnostic Imagining Performed Chest X-Ray 04/04/25 04:15 EXAM: XR chest 1V portable CLINICAL HISTORY: Dyspnea TECHNIQUE: An X-ray image of the chest was obtained in the AP projection. COMPARISON: None. FINDINGS: The lungs are clear and well expanded, with no pulmonary infiltrate or pleural effusion. The cardiomediastinal silhouette is within normal limits. No acute osseous abnormality is identified. IMPRESSION: 1. No acute cardiopulmonary disease. Electronically signed by Lane Breen 04-04-2025 06:56 AM Vascular Ultrasound 04/04/25 09:05 extremity non-vascular ltd CLINICAL HISTORY: right antecubital region ulcers; abscess? COMPARISON STUDY: None FINDINGS: There is soft tissue edema in the region of the antecubital fossa with no abscess or hematoma seen. IMPRESSION: No abscess seen. ACT 112: Negative or not required by law. Electronically signed by: Ludin Key M.D. 04/04/2025 11:02 AM Pending Results Patient Have Any Pending Studies at Discharge: No Discharge Instructions Given to Patient (Per Discharging Provider) Ms Weeks, Freddie were hospitalized for an asthma exacerbation. You responded quickly to IV steroids, nebulizer treatments, and supportive care. Your wheezing improved and your shortness of breath is much better. In addition we had the wound care nurse see you for your ulcers on your arms. They are recommending dressing changes every 3 days. See their instructions on how to care for the ulcers on your arms. We did give you 2 antibiotics for the arms as there appeared to be some infec tion of the ulcers. Ultrasound of your right arm did not show an abscess. Recommendations - 1. prednisone course for the asthma - start TOMORROW, take with food 2. Breo inhaler - 1 puff once daily starting TOMORROW. Rinse your mouth with water after using it, then spit the water out. This is your asthma "controller agent" to help prevent asthma flare-ups 3. antibiotics for infection of arms - -cephalexin 500mg four times daily x 5 days; start in the morning -doxycycline 100mg twice daily x 5 days; start in the morning -most common side effect for each antibiotic - diarrhea -occasionally doxycycline causes stomach upset/reflux -rarely doxycycline can cause a rash if you go out in the sun while taking the antibiotic; thus, be sure to use sunscreen and cover up well over the next 7 days 4. albuterol inhaler - -use with plastic spacer device - see handout on how to use the spacer -you can take 2 puffs every 4 hours as needed for cough/wheezing/shortness of breath -as you recover over the next few days you may need to use the albuterol several times per day for your symptoms -as you resolve the illness the albuterol use will be less and less 5. please talk with your new family doctor about ways to help you quit smoking 6. there is a clinic in [place] called "[facility]" that may be able to prescribe your Suboxone for you. Here is the clinic contact information and address. You will need to call to schedule an appointment with them. [address], [address] [place], [place] [id number] 7. wound care for your arms - see separate section from the wound care nurse. You should follow-up with either the [facility] in [place] OR the [facility] in [place]. Ideally you see one of these clinics in the next 1-2 weeks. 8. To help secure insurance (Medicaid) in [place] please see the following. You also received a local phone number from our social workers to help with the insurance process. On your computer or phone please visit --> [email or web address] This is a website where you can apply for the insurance. Ultimately you will need to cancel your [facility] Medicaid. That phone number is [phone]. 9. We will try to get you an appointment with [facility] to follow your asthma. Return to [facility] if - -you have fevers over 100 degrees -your ulcers on your arms worsen despite the wound care and the antibiotics -your breathing worsens -you have severe diarrhea (3 or more liquid stools in 24 hours) -any other concerns It was our pleasure to care for you! Total Time Total Time Spent Total Time Spent (In Minutes): 45 Coding Level of Care Code 66889 INP/OBS DISCH >30 MIN Diagnoses Asthma with exacerbation J45.901 IV drug abuse F19.10 Tobacco dependence F17.200 History of hepatitis C Z86.19 Depression F32.A HTN (hypertension) I10 Eosinophilia D72.10 Skin ulcer of upper arm L98.A199
== END 2025-04-05 17:48 | disposition home or self-care (01) ==
LOC: ED 04:06 → EDINP 04:06 → 2W 09:20
DX: J45.901 Unspecified asthma with (acute) exacerbation; Z86.19 Personal history of other infectious and parasitic diseases; I10 Essential (primary) hypertension; F32.A Depression, unspecified; L98.A11 Non-pressure chronic ulcer of right upper arm; F41.9 Anxiety disorder, unspecified; Z79.899 Other long term (current) drug therapy; F14.10 Cocaine abuse, uncomplicated; D72.10 Eosinophilia, unspecified; F17.210 Nicotine dependence, cigarettes, uncomplicated; L08.9 Local infection of the skin and subcutaneous tissue, unspecified; L98.A1 Non-pressure chronic ulcer of upper arm; E87.6 Hypokalemia

== ENCOUNTER 2025-05-13 14:51 | Inpatient (IN) ==
--- NOTE | 2025-05-13 15:11 | Emergency Department Note ---
Impression & Plan Open wound of arm, Abscess of arm, left ED Provider Note ED Provider Note NAME: SP GARCIA AGE:35 SEX: Female : 1990 ARRIVES VIA: POV INFORMANT: Patient ED PROVIDER(s): No mcdonald CHIEF COMPLAINT: cellulitis HPI: 35-year-old female presents emergency room with complaints of bilateral upper extremity cellulitis and possible abscesses. Patient states that she has been injecting cocaine and tasting the needle first. Patient states that she has had significant skin loss and open wounds for quite some time. Both antecubitals and some aspects of her wrist and back of hands have skin loss with superficial tissue erosion. There are quite a few areas that are scarred versus walled off abscess. Patient states she came in because it was all getting a lot worse and having redness and warmth. She states she subjectively had fevers and chills. She states she last used just prior to arrival in the emergency room. She is open to drug and alcohol rehab treatment options. PAST MEDICAL HISTORY:See Below PAST SURGICAL HISTORY:See Below FAMILY HISTORY:See Below SOCIAL HISTORY:See Below HOME MEDICATIONS:See Below ALLERGIES:See Below VITALS:See Below PHYSICAL EXAMINATION: GENERAL: alert, well appearing, well nourished, no distress, non-toxic EYE EXAM: normal conjunctiva, PERRL and EOM's grossly intact OROPHARYNX: no exudate, no erythema, lips, buccal mucosa, and tongue normal and mucous membranes are moist NECK: supple, no nuchal rigidity, no adenopathy, non-tender LUNGS: Clear to auscultation. Normal chest wall mechanics, no w/r/r HEART: no murmurs, S1 normal and S2 normal ABDOMEN: abdomen soft, non-tender, normo-active bowel sounds, no masses, no rebound or guarding. BACK: Back is symmetrical on inspection and there is no deformity, no midline tenderness, no CVA tenderness. SKIN: no rashes, petechiae, orbruising UPPER EXTREMITIES: upper extremities are grossly normal. FROM, nml pulses b/l. LOWER EXTREMITIES: No pitting edema. FROM, nml pulses b/l. NEURO EXAM: Normal sensorium, cranial nerves II-XII grossly intact, normal speech, no facial droop,nogross weakness of arms, no gross weakness of legs. Gross sensation intact. No ataxia. Vital Signs: reviewed and remarkable Differential Diagnosis: Contact dermatitis, viral exanthem, urticaria, allergic reaction, Hernandez- Braydon syndrome, toxic epidermal necrolysis, erythema multiforme, cellulitis, scabies, HSV, varicella, zoster, eczema, staph scalded skin syndrome, fungal infection, as well as other pathologies. MEDICAL DECISION MAKIN-year-old female presents emergency room with complaints of bilateral cellulitis. Does have an abscess in her left antecubital. Spoke with her about results and plan for admission given the cellulitis with the abscess adjacent to vessels and probable need for surgical consultation. I spoke with her about plan for wound care. She is agreeable to dispo to a detox or treatment program. Spoke with hospitalist, they will admit. Spoke with patient about results and plan, she is agreeable. Consultation(s): hospitalist ER Treatment Provided: See below Diagnostics Interpreted By Me: -ECG: EKG shows sinus tach at a rate of [address] changes, some ST flattening. -Cardiac Monitoring: An order was placed for continuous cardiac monitoring. The monitor shows a rate of [] with [] rhythm. -Laboratory studies: As stated above and show below. -Imaging studies: US shows complex collection L AC Triage Nursing Note Reviewed Prior/Outside Records Reviewed Past Med/Surg History Problem List (Updated 05/13/25 @ 18:50 by Ayse Mcdonald DO) Abscess of arm, left (Acute) Open wound of arm (Acute) Medical History (Updated 05/13/25 @ 18:50 by Ayse Mcdonald DO) Skin ulcer of upper arm Eosinophilia Asthma with exacerbation HTN (hypertension) Depression History of hepatitis C IV drug abuse Tobacco dependence Asthma Surgical History (Updated 04/11/25 @ 10:35 by Krista Simeon LPN) S/P appendectomy No pertinent past surgical history Family History (Updated 04/11/25 @ 10:36 by Krista Simeon LPN) Grandfather (Paternal) Breast cancer Denies family history of Ovarian cancer Prostate cancer Myocardial infarction Colorectal cancer Asthma Social History (Updated 04/16/25 @ 13:16 by Daxa Rudd) Smoking Status: Current every day smoker Tobacco Type: Cigarettes Age Started Using Tobacco: 16; packs per day: 0.5; Cigarettes Per Day: 10; Second Hand Exposure: Yes; Do You Dip or Chew Tobacco: No; Hx Alcohol Use: No Hx Substance Use: Yes Non-Prescribed Medications: Crack / Cocaine and IV Drugs Last Used Substance: Days (ago) Last Used Substance Other:: 3 days ago Substance Use Type Other:: iv drug use Preferred Language: Persian Communication Ability: Effective Visual Impairment: No Limitations Hearing Ability: Normal [employer] Required: No Beliefs That Will Affect Care: None marital status: Single Current Living Situation: Significant Other current occupational status: unemployed How many Children do You have: 1 other: moved from [facility] to [place] to stay with girlfriend Feels Safe at Home: Yes Childhood Exposure to Second-Hand Smoke: Yes Diet: regular caffeine: Yes during the past year weight has: increased > 10 lbs Dental Care, Regularly: No Physical Activity Frequency: Does not Exercise Seatbelt Use: always Sunscreen Use: Yes Assistive Devices: None Allergies Allergies Allergy/AdvReac Type Severity Reaction Status Date / Time No Known Allergies Allergy Verified 05/13/25 17:12 Home Meds Previous Rx's Medication Instructions Recorded albuterol sulfate 90 mcg/actuation 2 inh inhalation Q4H PRN shortness 04/05/25 aerosol inhaler (Ventolin HFA) of breath or wheezing or cough #6.7 grams buprenorphine 8 mg-naloxone 2 mg 1 tab sublingual TID #0 tabs 04/05/25 sublingual tablet fluticasone furoate 100 1 inh inhalation DAILY #1 ea 04/05/25 mcg-vilanterol 25 mcg/dose inhalation powder (Breo Ellipta) lisinopril 10 mg tablet 10 mg PO QAM #1 tab 04/05/25 topiramate 25 mg tablet 25 mg PO HS #1 tab 04/05/25 aripiprazole 10 mg tablet (Abilify) 10 mg PO QAM #90 tabs 04/10/25 bupropion HCl 150 mg 24 hr tablet, 150 mg PO QAM #30 tabs 04/10/25 extended release buspirone 10 mg tablet 10 mg PO BID #180 tabs 04/10/25 fluoxetine 40 mg capsule 40 mg PO QAM #90 caps 04/10/25 Results & Data (ED) Vital Signs Vital Signs - 24 hr 05/13/25 14:56 05/13/25 15:12 05/13/25 15:16 Temperature 36.7 C Temperature Source Temporal Artery Scan Pulse Rate 111 H 108 H 108 H Pulse Rate from SpO2 Sensor Respiratory Rate 20 24 Respiratory Effort / Characteristics Non-Labored Respiratory Depth Normal Blood Pressure 161/120 H 171/115 H Blood Pressure Mean 133 133 Pulse Oximetry 99 97 Oxygen Delivery Method Room Air Room Air Sepsis Recent Fever Within 48 Hours No Sepsis New/Unexplained Change in Mental Status No Sepsis Action Taken by Nursing No Action Required 05/13/25 16:42 05/13/25 16:45 05/13/25 17:00 Temperature Temperature Source Pulse Rate 90 87 83 Pulse Rate from SpO2 Sensor 92 H 88 84 Respiratory Rate 20 16 24 Respiratory Effort / Characteristics Respiratory Depth Blood Pressure 132/90 132/90 116/71 Blood Pressure Mean 104 104 86 Pulse Oximetry 95 95 94 Oxygen Delivery Method Room Air Room Air Room Air Sepsis Recent Fever Within 48 Hours Sepsis New/Unexplained Change in Mental Status Sepsis Action Taken by Nursing Laboratory Data 05/13/25 16:41 05/13/25 16:41 Lab Results 05/13/25 Range/Units 16:41 WBC 6.94 (4.8-10.8) K/ul RBC 4.04 L (4.20-5.40) M/uL Hgb 12.2 (12.0-16.0) g/dL Hct 35.2 L (37.0-47.0) % MCV 87.1 (80.0-100.0) fL MCH 30.2 (25.0-34.0) pg MCHC 34.7 (32.0-36.0) g/dL RDW Std Deviation 38.6 (36.4-46.3) fL RDW Coeff of Annie 11.9 (11.5-14.5) % Plt Count 396 (130-400) K/uL MPV 9.2 L (9.4-12.4) fL Immature Gran % (Auto) 0.3 % Neut % (Auto) 71.3 % Lymph % (Auto) 17.7 % [place] % (Auto) 4.5 % Eos % (Auto) 5.5 % Baso % (Auto) 0.7 % Neut # (Auto) 4.95 (1.40-6.50) K/uL Lymph # (Auto) 1.23 (1.20-3.40) K/uL [place] # (Auto) 0.31 (0.11-0.59) K/uL Eos # (Auto) 0.38 (0.00-0.50) K/uL Baso # (Auto) 0.05 (0.00-0.20) K/uL Immature Gran # (Auto) 0.02 (0.01-0.20) K/uL Platelet Estimate Increased H (Normal) Sodium 138 (136-145) mmol/L Potassium 3.8 (3.5-5.1) mmol/L Chloride 103 (98-107) mmol/L Carbon Dioxide 27 (21-32) mmol/L Anion Gap 8 (3-11) BUN 8 (6-23) mg/dl Creatinine 0.73 (0.6-1.2) mg/dl Est Cr Clr Drug Dosing 117.2 ml/min eGFR 110.60 BUN/Creatinine Ratio 11.0 (10-20) Glucose 103 H (70-99(Fasting)) mg/dl Calcium 9.7 (8.6-10.3) mg/dl Total Bilirubin 0.2 (0.2-1.0) mg/dl AST 11 L (13-39) U/L ALT 7 (7-52) U/L Alkaline Phosphatase 66 (34-104) U/L Total Protein 7.9 (6.0-8.3) gm/dl Albumin 4.1 (3.4-5.0) gm/dl Globulin 3.8 (2.5-4.0) gm/dl Albumin/Globulin Ratio 1.1 (0.9-2) Administered Medications Discontinued Medications Diphtheria/Pertussis/Tetanus Vacc (Diphther/Tetan/Pertus Vaccine (Tdap, Adol/Adult) 0.5ml) 0.5 ml IM .ONCE ONE Stop: 05/13/25 17:01 Last Admin: 05/13/25 17:50 Dose: 0.5 ml Documented By: SVETLANA Piperacillin Sod/Tazobactam Sod (Zosyn) 4.5 gm in 100 mls @ 200 mls/hr IV NOW ONE; Protocol Stop: 05/13/25 16:09 Last Infusion: 05/13/25 18:27 Dose: Infused Documented By: Admin: 05/13/25 16:51 Dose: 200 mls/hr Documented By: FRED Vancomycin HCl 2,250 mg/ (Sodium Chloride) 545 mls @ 200 mls/hr IV NOW ONE Stop: 05/13/25 18:23 Last Admin: 05/13/25 17:46 Dose: 200 mls/hr Documented By: SVETLANA Imaging Data Radiologist's Impression: Venous Doppler Study 05/13/25 15:31 Exam: Bilateral upper extremity venous Doppler. History: Intravenous drug use with bilateral upper extremity swelling and open wounds. Comparison:None. Findings: Right internal jugular, subclavian, axillary, cephalic, basilic, brachial, ulnar and radial veins demonstrate compression, augmentation and/or color flow. Edematous changes at the level of the right antecubital fossa. Reactive appearing lymph node proximal right forearm soft tissues. At the level of the left antecubital fossa there is a 2.4 x 0.8 x 2.5 cm somewhat lobulated hypoechoic through transmitting process demonstrating elements of internal echoes and vascularity. This is indeterminant. Impression: 1. No deep vein thrombosis. 2. Complex fluid collection left antecubital fossa. This is of uncertain etiology. Abscess is not excluded. Please see above for details. Electronically signed by Olivier Flores 05-13-2025 6:09 PM Discharge Plan Visit Data Chief Complaint: Arm Pain Stated Complaint: IV DRUG USER, ARM IS SWOLLEN AND INFECTION ED Provider: Ayse Mcdonald Discharge Problem: Open wound of arm, Abscess of arm, left Patient Disposition: Admitted As Inpatient Condition: Good Forms Stand Alone Forms: [facility] Prescriptions Prescriptions: No Action buspirone 10 mg tablet 10 mg PO BID Qty: 180 1RF aripiprazole [Abilify] 10 mg tablet 10 mg PO QAM Qty: 90 1RF fluoxetine 40 mg capsule 40 mg PO QAM Qty: 90 1RF bupropion HCl 150 mg tablet extended release 24 hr 150 mg PO QAM Qty: 30 2RF lisinopril 10 mg Tablet 10 mg PO QAM Qty: 1 0RF buprenorphine-naloxone 8-2 mg Tablet, Sublingual 1 tab sublingual TID Qty: 0 0RF fluticasone furoate-vilanterol [Breo Ellipta] 100-25 mcg/dose Blister With Device 1 inh inhalation DAILY Qty: 1 0RF topiramate 25 mg Tablet 25 mg PO HS Qty: 1 0RF albuterol sulfate [Ventolin HFA] 90 mcg/actuation HFA aerosol inhaler 2 inh inhalation Q4H PRN (Reason: shortness of breath or wheezing or cough) Qty: 6.7 0RF Rx Instructions: use with spacer device Referrals Referrals: Reed Gunderson DO [Primary Care Provider] -
[2025-05-13] MEDS ORDERED: VANCOMYCIN CONSULT ACTIVE PRN ×2 (15:40→21:52)
[2025-05-13] MEDS: PIPERACILLIN/TAZOBACTAM 4.5 GM/100 ML BAG IV ONE (16:51)
[2025-05-13 17:20] LABS: Alanine Aminotransferase 7.0 U/L (7-52); Albumin Globulin Ratio 1.1 (0.9-2); Albumin Level 4.1 gm/dl (3.4-5.0); Alkaline Phosphatase 66.0 U/L (34-104); Anion Gap 8.0 (3-11); Bilirubin,Total 0.2 mg/dl (0.2-1.0); Blood Urea Nitrogen 8.0 mg/dl (6-23); Calcium 9.7 mg/dl (8.6-10.3); Carbon Dioxide 27.0 mmol/L (21-32); Chloride 103.0 mmol/L (98-107); Creatinine Clr Calc Pharmacy 117.2 ml/min; Globulin 3.8 gm/dl (2.5-4.0); Glucose 103.0 mg/dl (70-99(Fasting)); Potassium 3.8 mmol/L (3.5-5.1); Sodium 138.0 mmol/L (136-145); Total Protein 7.9 gm/dl (6.0-8.3)
[2025-05-13 17:26] LABS: Hematocrit (blood only) 35.2 % (37.0-47.0); Hemoglobin 12.2 g/dL (12.0-16.0); Immature Granulocytes # (auto) 0.02 K/uL (0.01-0.20); Immature Granulocytes % (auto) 0.3 %; Mean Corpuscular Hemoglobin 30.2 pg (25.0-34.0); Mean Corpuscular Volume 87.1 fL (80.0-100.0); Platelet Count 396 K/uL (130-400); RDW Standard Deviation 38.6 fL (36.4-46.3); Red Blood Count 4.04 M/uL (4.20-5.40); White Blood Count 6.94 K/ul (4.8-10.8)
[2025-05-13] MEDS: VANCOMYCIN HCL 2,250 MG in SODIUM CHLORIDE 0.9% 500 ML IV ONE (17:46)
[2025-05-13] MEDS: DIPHTHER/TETAN/PERTUS Vaccine (Tdap, Adol/Adult) 0.5mL IM ONE (17:50)
--- NOTE | 2025-05-13 18:10 | Ultrasound Report ---
Exam: Bilateral upper extremity venous Doppler. History: Intravenous drug use with bilateral upper extremity swelling and open wounds. Comparison:None. Findings: Right internal jugular, subclavian, axillary, cephalic, basilic, brachial, ulnar and radial veins demonstrate compression, augmentation and/or color flow. Edematous changes at the level of the right antecubital fossa. Reactive appearing lymph node proximal right forearm soft tissues. At the level of the left antecubital fossa there is a 2.4 x 0.8 x 2.5 cm somewhat lobulated hypoechoic through transmitting process demonstrating elements of internal echoes and vascularity. This is indeterminant. Impression: 1. No deep vein thrombosis. 2. Complex fluid collection left antecubital fossa. This is of uncertain etiology. Abscess is not excluded. Please see above for details. Electronically signed by Olivier Flores 05-13-2025 6:09 PM
--- NOTE | 2025-05-13 18:37 | History & Physical Report ---
Date of Service May 13, 2025 Assessment & Plan (1) Abscess of arm, left: (2) Open wound of arm: (3) HTN (hypertension): (4) Asthma with exacerbation: (5) Depression: (6) History of hepatitis C: (7) IV drug abuse: (8) Tobacco dependence: (9) Asthma: (10) Skin ulcer of upper arm: Plan # bilateral skin ulceration with underlying fluid collection concerning for abscess - secondary to active IV drug use, start Zosyn and Vanco, wound care consult, surgery consult for debridement - serial inflammatory markers, CRP and procalcitonin - superficial cultures obtained in the emergency department - admit MedSurg, telemetry given history of substance abuse, monitoring for withdrawal #substance abuse - discusses 1 g cocaine use daily for the recent past. Last episode of sobriety was 2018 for the of a child - consult case management for outpatient abstinence resources - mostly neurovegetative symptoms and fatigue secondary to withdrawal from cocaine. No indication for benzodiazepine or other medications at this time - she does report using Suboxone. It is not in the PDMP in our system. Will establish with the clinic tomorrow for ongoing dosing #asthma - continue controller medication, DuoNeb and albuterol as needed as needed #hypertension - continue lisinopril #anxiety depression - continue BuSpar, fluoxetine, topiramate - U consult #FEN - heart healthy diet, normal saline at 100 cc/h through the night #CODE STATUS - full code per her wishes. Discussed with the patient at the bedside at the time of admission History of Present Illness Chief Complaint: Arm Sores Primary Care Provider: Reed Gunderson DO 35-year-old female history of recurrent relapsing substance abuse, cocaine dependence, anxiety, depression, mild asthma, hypertension presents to the emergency department with open wounds on the antecubital fossa of her arms bilaterally. Patient states she has been openly injecting liquid cocaine and her veins persistently for the last several weeks to months. She has been dealing with these wounds on and off through the wound care clinic for several months but states persistently they have gotten worse over the last several weeks. She is noticing pain in discomfort underneath the left side of her arm. She denies any fevers or chills nausea or vomiting. No generalized signs of illness. States she has previously been sober but not since 2019. She has previously followed with a detox and safe house program. She has not had any recent significant withdrawal symptoms other than fatigue for not using. She uses a controller inhaler regularly. Has not needed a rescue inhaler much. Otherwise no recent changes to medications. She does report Suboxone. It is not in the PDMP at this time. Initial evaluation in the emergency department shows open ulcerations on the antecubital fossa bilaterally with surrounding erythema induration and deep ulceration. She was referred for admission for IV antibiotics. Wound care consultation, surgical consultation for possible debridement. Case management consultation for abstinence and detox programs. Allergies Allergy/AdvReac Type Severity Reaction Status Date / Time No Known Allergies Allergy Verified 05/13/25 17:12 Home Medications Medication Instructions Recorded Confirmed Type albuterol sulfate 90 mcg/actuation 2 inh inhalation Q4H PRN shortness 04/05/25 05/13/25 Rx aerosol inhaler (Ventolin HFA) of breath or wheezing or cough #6.7 grams buprenorphine 8 mg-naloxone 2 mg 1 tab sublingual TID #0 tabs 04/05/25 05/13/25 Rx sublingual tablet fluticasone furoate 100 1 inh inhalation DAILY #1 ea 04/05/25 05/13/25 Rx mcg-vilanterol 25 mcg/dose inhalation powder (Breo Ellipta) lisinopril 10 mg tablet 10 mg PO QAM #1 tab 04/05/25 05/13/25 Rx topiramate 25 mg tablet 25 mg PO HS #1 tab 04/05/25 05/13/25 Rx aripiprazole 10 mg tablet (Abilify) 10 mg PO QAM #90 tabs 04/10/25 05/13/25 Rx bupropion HCl 150 mg 24 hr tablet, 150 mg PO QAM #30 tabs 04/10/25 05/13/25 Rx extended release buspirone 10 mg tablet 10 mg PO BID #180 tabs 04/10/25 05/13/25 Rx fluoxetine 40 mg capsule 40 mg PO QAM #90 caps 04/10/25 05/13/25 Rx Past Med/Surg History Problem List (Updated 05/13/25 @ 18:50 by Ayse Mcdonald DO) Abscess of arm, left (Acute) Open wound of arm (Acute) Medical History (Updated 05/13/25 @ 18:50 by Ayse A Mcdonald, DO) Skin ulcer of upper arm Eosinophilia Asthma with exacerbation HTN (hypertension) Depression History of hepatitis C IV drug abuse Tobacco dependence Asthma Surgical History (Updated 04/11/25 @ 10:35 by Krista Simeon LPN) S/P appendectomy No pertinent past surgical history Family History (Updated 04/11/25 @ 10:36 by Krista Simeon LPN) Grandfather (Paternal) Breast cancer Denies family history of Ovarian cancer Prostate cancer Myocardial infarction Colorectal cancer Asthma Social History (Updated 04/16/25 @ 13:16 by Daxa Rudd) Smoking Status: Current every day smoker Tobacco Type: Cigarettes Age Started Using Tobacco: 16; packs per day: 0.5; Cigarettes Per Day: 10; Second Hand Exposure: Yes; Do You Dip or Chew Tobacco: No; Hx Alcohol Use: No Hx Substance Use: Yes Non-Prescribed Medications: Crack / Cocaine and IV Drugs Last Used Substance: Days (ago) Last Used Substance Other:: 3 days ago Substance Use Type Other:: iv drug use Preferred Language: Latvian Communication Ability: Effective Visual Impairment: No Limitations Hearing Ability: Normal [employer] Required: No Beliefs That Will Affect Care: None marital status: Single Current Living Situation: Significant Other current occupational status: unemployed How many Children do You have: 1 other: moved from [facility] to [place] to stay with girlfriend Feels Safe at Home: Yes Childhood Exposure to Second-Hand Smoke: Yes Diet: regular caffeine: Yes during the past year weight has: increased > 10 lbs Dental Care, Regularly: No Physical Activity Frequency: Does not Exercise Seatbelt Use: always Sunscreen Use: Yes Assistive Devices: None Review of Systems Review of Systems: Aside from that noted in HPI a full 10 point review of systems conducted and was negative Physical Exam Constitutional: WD/WN, vitals as above Eyes: PERRL, conjunctivae normal, anicteric sclerae ENMT: external ear and nose normal, oropharynx normal several piercing Respiratory: good air movement throughout, wheezes on the expiratory phase right greater than left Cardiovascular: regular rate and rhythm no murmurs rubs or gallops Musculoskeletal: no lower extremity edema. There is no palpable adenopathy but tenderness in the axilla on the left. Skin: Scattered deep ulcerations with surrounding erythema in the antecubital fossa bilaterally with mucousy deep ulcerations into the dermal layers. No active bleeding. Scattered superficial ulcerations in the hands and forearms bilaterally. Neurologic: Alert and oriented, no apparent distress. No focal neurologic deficits. No dysmetria or dysarthria. Pupils equal round reactive to light. No nystagmus. No tremor. Reflexes normal Psychiatric: Orientation: alert and oriented x 3 Eye Contact: good eye contact Motor Behavior: steady gait and station Speech: normal rate/rhythm/volume of speech; no pressured speech and no loud speech Affect: euthymic affect Thought Process: goal directed thought process and linear/logical thought process Suicidal Thoughts: + reports suicidal thoughts Cognition: recent memory grossly intact Insight: good insight Results & Data Results & Data Vital Signs (Past 12 Hours) Vital Signs Temp Pulse Resp BP Pulse Ox O2 Del Method 05/13/25 17:00 83 24 116/71 94 Room Air 05/13/25 16:45 87 16 132/90 95 Room Air 05/13/25 16:42 90 20 132/90 95 Room Air 05/13/25 15:16 108 H 05/13/25 15:12 108 H 24 171/115 H 97 Room Air 05/13/25 14:56 36.7 C 111 H 20 161/120 H 99 Room Air Laboratory Results 05/13/25 16:41 Aerobic Blood Culture - Pending Blood Anaerobic Blood Culture - Pending 05/13/25 16:41 Aerobic Blood Culture - Pending Blood Anaerobic Blood Culture - Pending 05/13/25 16:41 WBC 6.94 RBC 4.04 L Hgb 12.2 Hct 35.2 L MCV 87.1 MCH 30.2 MCHC 34.7 RDW Std Deviation 38.6 RDW Coeff of Annie 11.9 Plt Count 396 MPV 9.2 L Immature Gran % (Auto) 0.3 Neut % (Auto) 71.3 Lymph % (Auto) 17.7 [place]ts % (Auto) 4.5 Eos % (Auto) 5.5 Baso % (Auto) 0.7 Neut # (Auto) 4.95 Lymph # (Auto) 1.23 Butts # (Auto) 0.31 Eos # (Auto) 0.38 Baso # (Auto) 0.05 Immature Gran # (Auto) 0.02 Platelet Estimate Increased H Sodium 138 Potassium 3.8 Chloride 103 Carbon Dioxide 27 Anion Gap 8 BUN 8 Creatinine 0.73 Est Cr Clr Drug Dosing 117.2 eGFR 110.60 BUN/Creatinine Ratio 11.0 Glucose 103 H Calcium 9.7 Total Bilirubin 0.2 AST 11 L ALT 7 Alkaline Phosphatase 66 Total Protein 7.9 Albumin 4.1 Globulin 3.8 Albumin/Globulin Ratio 1.1 Diagnostic Findings Venous Doppler Study 05/13/25 15:31 Exam: Bilateral upper extremity venous Doppler. History: Intravenous drug use with bilateral upper extremity swelling and open wounds. Comparison:None. Findings: Right internal jugular, subclavian, axillary, cephalic, basilic, brachial, ulnar and radial veins demonstrate compression, augmentation and/or color flow. Edematous changes at the level of the right antecubital fossa. Reactive appearing lymph node proximal right forearm soft tissues. At the level of the left antecubital fossa there is a 2.4 x 0.8 x 2.5 cm somewhat lobulated hypoechoic through transmitting process demonstrating elements of internal echoes and vascularity. This is indeterminant. Impression: 1. No deep vein thrombosis. 2. Complex fluid collection left antecubital fossa. This is of uncertain etiology. Abscess is not excluded. Please see above for details. Electronically signed by Olviier Flores 05-13-2025 6:09 PM PG Care Time/CCT Total # of Minutes Spent Total Time Spent with Patient: Total time spent is greater than 50% in coordination of care (as documented) at patient's floor/unit and/or counseling patient: Coding Level of Care Code 50051 INT INP/OBS CARE 2MIN Diagnoses Abscess of arm, left L02.414 Open wound of arm S41.109A HTN (hypertension) I10 Asthma with exacerbation J45.901 Depression F32.A History of hepatitis C Z86.19 IV drug abuse F19.10 Tobacco dependence F17.200 Asthma J45.909 Skin ulcer of upper arm L98.A199
[2025-05-13] MEDS: ALBUT/IPRATROP 3MG/0.5MG NEB 3 ML VIAL NEB STA (19:01)
[2025-05-13] MEDS ORDERED: MELATONIN 3 MG TAB PO PRN (21:52)
[2025-05-13] MEDS ORDERED: ACETAMINOPHEN 325 MG TAB PO PRN (21:52)
[2025-05-13] MEDS: SODIUM CHLORIDE 0.9% 1,000 ML IV SCH (22:11)
--- NOTE | 2025-05-13 22:12 | Surgery Consultation ---
Date of Consultation May 13, 2025 Assessment & Plan (1) Abscess of arm, left: Patient has been admitted on the hospitalist service. General surgery recommendations are as follows: Appears that the patient has a fluid collection in her left antecubital fossa based on her history this potentially represents an abscess. It does not appear that she has any drainable fluid collection/abscess in the right antecubital fossa She has been placed on broad-spectrum antibiotics in form of Zosyn and vancomycin which should continue. Appropriate cultures have been sent and these cultures can be utilized to tailor antibiotics when they are available The patient may require incision and drainage of her left antecubital fluid collection and therefore made her n.p.o. after midnight tonight. Patient is going to be evaluated by wound care nurse and general surgery attending on 05/14/2025 and determination will be made if patient will continue with local wound care or formal incision and drainage will be required At the time of my interview the patient was nontoxic-appearingthat she is normotensive without tachycardia or fever Additional recommendations will be forthcoming based on her clinical course as unfolds Supervising Physician Co-Signing Physician Notes Discussed with GIO overnight, labs and imaging reviewed, agree with above. History of IV drug abuse, with scabbing and sores at her antecubital fossa on b oth arms. Possible fluid collection on ultrasound on the left. Patient was admitted for IV antibiotics, potential I&D. Dr. Tolentino to assume care of the patient. History of Present Illness Reason for Consultation: Antecubital abscess Attending Physician: Rainer Saldivar MD History of Present Illness This is a 35 female who was admitted to the hospital today due to concerns for infections of her upper extremities. The patient notes that she has a history of injectable drug abuse. The patient notes that she injects cocaine and typically does this in her upper extremities and the hands as well as the antecubital fossa. She says i she has been doing this for a long time with her most recent drug injection earlier today. She notes that she has had some swelling of her left upper extremity and a worsening appearance of her antecubital fossa bilaterally prompting her visit to the hospital. Her records were reviewed and it does appear as though she was seen in the wound care center in March of this year at which time she had debridement of her antecubital fossa bilaterally. Patient says that this is the only time she had any type of surgical debridement or wound care at this nature. Patient has not any fevers but does admit to intermittent chills. She does not report any additional complaints. Consult Since arrival to the hospital this patient has had labs and imaging which I independent reviewed. Patient did have a venous Doppler study performed of her upper extremities bilaterally. This did not show any evidence of DVT [place] however the patient did have a complex fluid collection in the left antecubital fossa. No fluid collection was noted of the right antecubital fossa. Labs included CBC white blood cell count platelet count were normal. Hemoglobin was normal with a hematocrit of 35.2. Chemistry profile showed sodium and potassium as well as the BUN and creatinine were normal. At the time of my interview the patient was resting comfortably in bed and she was in no distress. Allergies Allergy/AdvReac Type Severity Reaction Status Date / Time No Known Allergies Allergy Verified 05/13/25 17:12 Home Medications Medication Instructions Recorded Confirmed Type albuterol sulfate 90 mcg/actuation 2 inh inhalation Q4H PRN shortness 04/05/25 05/13/25 Rx aerosol inhaler (Ventolin HFA) of breath or wheezing or cough #6.7 grams buprenorphine 8 mg-naloxone 2 mg 1 tab sublingual TID #0 tabs 04/05/25 05/13/25 Rx sublingual tablet fluticasone furoate 100 1 inh inhalation DAILY #1 ea 04/05/25 05/13/25 Rx mcg-vilanterol 25 mcg/dose inhalation powder (Breo Ellipta) lisinopril 10 mg tablet 10 mg PO QAM #1 tab 04/05/25 05/13/25 Rx topiramate 25 mg tablet 25 mg PO HS #1 tab 04/05/25 05/13/25 Rx aripiprazole 10 mg tablet (Abilify) 10 mg PO QAM #90 tabs 04/10/25 05/13/25 Rx bupropion HCl 150 mg 24 hr tablet, 150 mg PO QAM #30 tabs 04/10/25 05/13/25 Rx extended release buspirone 10 mg tablet 10 mg PO BID #180 tabs 04/10/25 05/13/25 Rx fluoxetine 40 mg capsule 40 mg PO QAM #90 caps 04/10/25 05/13/25 Rx Patient History Medical History Skin ulcer of upper arm Eosinophilia Asthma with exacerbation HTN (hypertension) Depression History of hepatitis C IV drug abuse Tobacco dependence Asthma Surgical History S/P appendectomy No pertinent past surgical history Family History Grandfather (Paternal) Breast cancer Denies family history of Ovarian cancer Prostate cancer Myocardial infarction Colorectal cancer Asthma Social History Smoking Status: Current every day smoker Tobacco Type: Cigarettes Age Started Using Tobacco: 16; packs per day: 0.5; Cigarettes Per Day: 1/2 pk; Second Hand Exposure: Yes; Do You Dip or Chew Tobacco: No; Tobacco Cessation Education Requested by Patient: No Hx Alcohol Use: No Hx Substance Use: Yes Non-Prescribed Medications: Crack / Cocaine and IV Drugs Last Used Substance: Just Prior to Arrival Last Used Substance Other:: crack cocaine at 1500 on 05/13/25; approx 1 gram/day Substance Use Type Other:: iv drug use Preferred Language: Portuguese Communication Ability: Effective Visual Impairment: No Limitations Hearing Ability: Normal Gear Inspector Required: No Beliefs That Will Affect Care: None marital status: Single Current Living Situation: Significant Other Current Living Situation Comment: lives with girlfriend current occupational status: unemployed How many Children do You have: 1 Other Information That Helps Us Care for You: No other: moved from [facility] to [place] to stay with girlfriend Feels Safe at Home: Yes Safety Concerns: Feels Safe At This Time Childhood Exposure to Second-Hand Smoke: Yes Diet: regular caffeine: Yes during the past year weight has: increased > 10 lbs Dental Care, Regularly: No Physical Activity Frequency: Does not Exercise Seatbelt Use: always Sunscreen Use: Yes Assistive Devices: None Review of Systems Review of Systems: All systems reviewed & are unremarkable except as noted in HPI & below Physical Exam Constitutional: WD/WN, vitals as above Eyes: no conjunctival abnormality ENMT: Ears: no hearing impairment Neck: trachea midline Respiratory: normal respiratory effort; no respiratory distress and no labored breathing Cardiovascular: Rate/Rhythm: regular rate and regular rhythm Musculoskeletal: The patient's upper extremities were examined bilaterally. There is some swelling of the patient's left upper arm above/proximal to antecubital fossa. There is no lymphatic streaking. The patient had several open areas of excoriation consistent with intravenous drug use in her antecubital fossa. There is some induration and fluctuance noted of this area. There is no crepitus in the soft tissue. The patient also had evidence of drug injection in her hands and forearms on this extremity. On the right upper extremity she again had multiple open areas of excoriation consistent with previous drug injection but there is no swelling of this extremity and no crepitus in the soft tissue. There is also no lymphatic streaking. There is no pain with passive range of motion of her elbows or wrists bilaterally. Skin: See above description Psychiatric: A+Ox3, euthymic affect Results & Data Vital Signs (Past 12 Hours) Vital Signs Temp Pulse Resp BP Pulse Ox O2 Del Method 05/13/25 20:06 81 14 114/73 95 Room Air 05/13/25 20:00 83 15 114/73 94 Room Air 05/13/25 19:03 76 05/13/25 18:42 85 24 130/93 90 Room Air 05/13/25 17:00 83 24 116/71 94 Room Air 05/13/25 16:45 87 16 132/90 95 Room Air 05/13/25 16:42 90 20 132/90 95 Room Air 05/13/25 15:16 108 H 05/13/25 15:12 108 H 24 171/115 H 97 Room Air 05/13/25 14:56 36.7 C 111 H 20 161/120 H 99 Room Air PG Care Time/CCT Total # of Minutes Spent Total Time Spent with Patient: Total time spent is greater than 50% in coordination of care (as documented) at patient's floor/unit and/or counseling patient: Coding Level of Care Code 49514 IN/OBS CONSULT LVL 5,80M Diagnoses Abscess of arm, left L02.414
[2025-05-13] MEDS: HEPARIN SOD 5,000 UNIT/0.5 ML VIAL SQ SCH (22:19)
[2025-05-13] MEDS: BUPRENORPHINE/NALOXONE 8/2 MG TAB SL SCH (22:19)
[2025-05-13] MEDS: busPIRone 5 MG TAB PO SCH (22:20)
[2025-05-13] MEDS: TOPIRAMATE 25 MG TAB PO SCH (22:21)
[2025-05-13] MEDS: PIPERACILLIN/TAZOBACTAM 4.5 GM/100 ML BAG IV SCH (22:29)
--- NOTE | 2025-05-13 23:27 | History & Physical Report ---
Date of Service May 13, 2025 Assessment & Plan Admission and Anticipated Discharge Date Admission Date: May 13, 2025 History of Present Illness Primary Care Provider: Reed Gunderson DO Allergies Allergy/AdvReac Type Severity Reaction Status Date / Time No Known Allergies Allergy Verified 05/13/25 17:12 Home Medications Medication Instructions Recorded Confirmed Type albuterol sulfate 90 mcg/actuation 2 inh inhalation Q4H PRN shortness 04/05/25 05/13/25 Rx aerosol inhaler (Ventolin HFA) of breath or wheezing or cough #6.7 grams buprenorphine 8 mg-naloxone 2 mg 1 tab sublingual TID #0 tabs 04/05/25 05/13/25 Rx sublingual tablet fluticasone furoate 100 1 inh inhalation DAILY #1 ea 04/05/25 05/13/25 Rx mcg-vilanterol 25 mcg/dose inhalation powder (Breo Ellipta) lisinopril 10 mg tablet 10 mg PO QAM #1 tab 04/05/25 05/13/25 Rx topiramate 25 mg tablet 25 mg PO HS #1 tab 04/05/25 05/13/25 Rx aripiprazole 10 mg tablet (Abilify) 10 mg PO QAM #90 tabs 04/10/25 05/13/25 Rx bupropion HCl 150 mg 24 hr tablet, 150 mg PO QAM #30 tabs 04/10/25 05/13/25 Rx extended release buspirone 10 mg tablet 10 mg PO BID #180 tabs 04/10/25 05/13/25 Rx fluoxetine 40 mg capsule 40 mg PO QAM #90 caps 04/10/25 05/13/25 Rx Past Med/Surg History Problem List Abscess of arm, left (Acute) Open wound of arm (Acute) Medical History Skin ulcer of upper arm Eosinophilia Asthma with exacerbation HTN (hypertension) Depression History of hepatitis C IV drug abuse Tobacco dependence Asthma Surgical History S/P appendectomy No pertinent past surgical history Family History Grandfather (Paternal) Breast cancer Denies family history of Ovarian cancer Prostate cancer Myocardial infarction Colorectal cancer Asthma Social History Smoking Status: Current every day smoker Tobacco Type: Cigarettes Age Started Using Tobacco: 16; packs per day: 0.5; Cigarettes Per Day: 10; Second Hand Exposure: Yes; Do You Dip or Chew Tobacco: No; Hx Alcohol Use: No Hx Substance Use: Yes Non-Prescribed Medications: Crack / Cocaine and IV Drugs Last Used Substance: Days (ago) Last Used Substance Other:: 3 days ago Substance Use Type Other:: iv drug use Preferred Language: Danish Communication Ability: Effective Visual Impairment: No Limitations Hearing Ability: Normal Internal Communications Specialist Required: No Beliefs That Will Affect Care: None marital status: Single Current Living Situation: Significant Other current occupational status: unemployed How many Children do You have: 1 other: moved from [facility] to [place] to stay with girlfriend Feels Safe at Home: Yes Childhood Exposure to Second-Hand Smoke: Yes Diet: regular caffeine: Yes during the past year weight has: increased > 10 lbs Dental Care, Regularly: No Physical Activity Frequency: Does not Exercise Seatbelt Use: always Sunscreen Use: Yes Assistive Devices: None Results & Data Results & Data Vital Signs (Past 12 Hours) Vital Signs Temp Pulse Resp BP Pulse Ox O2 Del Method 05/13/25 21:53 84 05/13/25 20:06 81 14 114/73 95 Room Air 05/13/25 20:00 83 15 114/73 94 Room Air 05/13/25 19:03 76 05/13/25 18:42 85 24 130/93 90 Room Air 05/13/25 17:00 83 24 116/71 94 Room Air 05/13/25 16:45 87 16 132/90 95 Room Air 05/13/25 16:42 90 20 132/90 95 Room Air 05/13/25 15:16 108 H 05/13/25 15:12 108 H 24 171/115 H 97 Room Air 05/13/25 14:56 36.7 C 111 H 20 161/120 H 99 Room Air Code Status & VTE Plan VTE Prophylaxis Plan VTE Prophylaxis will be ordered: Yes
[2025-05-14] MEDS: VANCOMYCIN HCL 1,500 MG in SODIUM CHLORIDE 0.9% 500 ML IV SCH (02:52)
[2025-05-14 06:50] LABS: Hematocrit (blood only) 31.8 % (37.0-47.0); Hemoglobin 10.8 g/dL (12.0-16.0); Immature Granulocytes # (auto) 0.01 K/uL (0.01-0.20); Immature Granulocytes % (auto) 0.1 %; Mean Corpuscular Hemoglobin 29.9 pg (25.0-34.0); Mean Corpuscular Volume 88.1 fL (80.0-100.0); Platelet Count 318 K/uL (130-400); RDW Standard Deviation 39.4 fL (36.4-46.3); Red Blood Count 3.61 M/uL (4.20-5.40); White Blood Count 7.53 K/ul (4.8-10.8)
[2025-05-14 07:08] LABS: Alanine Aminotransferase 6.0 U/L (7-52); Albumin Globulin Ratio 1.3 (0.9-2); Albumin Level 3.6 gm/dl (3.4-5.0); Alkaline Phosphatase 55.0 U/L (34-104); Anion Gap 6.0 (3-11); Bilirubin,Total 0.3 mg/dl (0.2-1.0); Blood Urea Nitrogen 11.0 mg/dl (6-23); Calcium 8.5 mg/dl (8.6-10.3); Carbon Dioxide 25.0 mmol/L (21-32); Chloride 108.0 mmol/L (98-107); Creatinine Clr Calc Pharmacy 84.7 ml/min; Globulin 2.8 gm/dl (2.5-4.0); Glucose 106.0 mg/dl (70-99(Fasting)); Magnesium 1.7 mg/dl (1.7-2.4); Potassium 3.9 mmol/L (3.5-5.1); Sodium 139.0 mmol/L (136-145); Total Protein 6.4 gm/dl (6.0-8.3)
[2025-05-14 07:24] LABS: INR 1.0 (0.9-1.1); Partial Thromboplastin Time 26 Seconds (21-31); Prothrombin Time 10.9 Seconds (9.0-12.0)
--- NOTE | 2025-05-14 07:58 | Pharmacy Report ---
Pharmacy PK ABX Note - Date of Service May 14, 2025 - Assessment and Plan Assessment 35 year old F receiving vancomycin/zosyn for abscess of arm/left. Surgery consulted for possible I&D. Blood cultures pending. PMHx significant fo IV drug abuse. Plan Vancomycin * Loading dose: 2250 mg IV x 1 * Maintenance dose: 1250 mg IV every 12 hours * Regimen is predicted to achieve target AUC/BARRERA of 400-600 mg/L.hr * Random vancomycin ordered for tomorrow to assess dosing. Pharmacy will continue to follow and will adjust dose/frequency as necessary. Thank you. Pharmacy has transitioned to AUC monitoring for vancomycin. AUC/BARRERA is the preferred PK/PD target and is associated with decreased risk of nephrotoxicity compared to traditional trough targets.
[2025-05-14] MEDS: ONDANSETRON INJ 2 MG/ML 2 ML VIAL IV PRN (09:36)
[2025-05-14] MEDS: REMOVE NICODERM PATCH SCH (09:37)
[2025-05-14] MEDS: NICOTINE 21 MG/24 HR TDSY TD SCH (09:37)
[2025-05-14] MEDS: FLUTICASONE/VILANTEROL 100/25MCG 14 PUFFS/INHALER INH SCH (09:38)
--- NOTE | 2025-05-14 12:15 | Hospitalist Progress Note ---
Date of Service May 14, 2025 Assessment & Plan (1) Abscess of arm, left: (2) Open wound of arm: (3) HTN (hypertension): (4) IV drug abuse: (5) Tobacco dependence: Plan This patient is a 35-year-old female with a history of substance use disorder (injectable cocaine, opioids, methamphetamine), depression/anxiety, HTN, asthma, and previously treated hepatitis C, who was admitted with bilateral wound infections in the antecubital fossae bilaterally. Venous Doppler of the bi lateral upper extremities negative for DVT but shows complex fluid collection left AC fossa 2.4 x 0.8 x 2.5 cm-possible abscess. No evidence of sepsis on admission, CRP mildly elevated, procalcitonin negative. #Bilateral skin ulceration with underlying fluid collection concerning for abscess- secondary to active IV drug use, possible developing abscess. No sepsis - Continue IV Zosyn and Vanco - Appreciate general surgery consultation-hold off on incision and drainage for now-Will see if more fluctuance comes to the surface for easier drainage - Wound care consult - Follow CBC, BMP in the a.m. - Follow wound cultures #substance abuse/anxiety/depression-injects cocaine mixed with water into her veins on a daily basis. Has been to rehab in the past and is interested in attending rehab and getting sober. She denies alcohol use or other drug use at this time but in the past has abused opioids and methamphetamines. She is on Suboxone and the dose was confirmed with her Suboxone clinic in [facility]. Last episode of sobriety was 2019 for the of a child - consult case management for outpatient abstinence resources - Consult psychiatry at patient's request - Continue Suboxone 8/2 mg SL 3 times daily-she actually takes 3-1/2 sublingual per day at home - continue BuSpar, fluoxetine, topiramate #asthma-no acute issues - continue controller medication, DuoNeb and albuterol as needed #hypertension-BP is controlled - continue lisinopril #Current smoker-continue nicotine patch and encourage cessation DVT prophylaxis-heparin SQ Disposition-continued stay but can downgrade off telemetry to medical/surgical floor Admission and Anticipated Discharge Date Admission Date: May 13, 2025 Subjective Patient feels like her arms look less red than when she came in but otherwise denies pain in the wounds of the arms. I did discuss her case with the surgery GIO. The patient reports she mixes cocaine with water to inject it in her veins. She is committed to going to rehab and quitting drug abuse. The nurse navigator was kind enough to contact the patient's Suboxone clinic who confirm her dose of Suboxone to be 8/2 mg 3-1/2 sublingual films daily Telemetry with normal sinus rhythm with rates in the 70s to 80s Physical Exam Constitutional: WD/WN, vitals as above Respiratory: normal respiratory effort, lungs clear to auscultation Cardiovascular: RRR, no murmur, no edema Gastrointestinal (Abdomen): normal bowel sounds, soft, nontender, no hepatosplenomegaly Skin: + lesion (Positive induration surroundin g left AC wound laterally, no fluctuance) and + ulcer (Bilateral AC fossa open wounds draining purulence, no erythema) Psychiatric: A+Ox3, euthymic affect Results & Data Results & Data Vital Signs (Past 12 Hours) Vital Signs Temp Pulse Pulse Resp BP Pulse Ox O2 Del Method 05/14/25 11:13 36.5 C 84 16 125/72 96 Room Air 05/14/25 10:00 Room Air 05/14/25 07:37 36.4 C L 85 16 108/54 L 95 Room Air 05/14/25 07:30 78 05/14/25 03:45 36.5 C 94 H 20 117/69 95 Room Air Laboratory Results CBC, CMP, magnesium, CRP, procalcitonin reviewed PG Care Time/CCT Total # of Minutes Spent Total Time Spent with Patient: Total time spent is greater than 50% in coordination of care (as documented) at patient's floor/unit and/or counseling patient: Coding Level of Care Code 66130 SUB INP/OBS CARE 3/50MIN Diagnoses Abscess of arm, left L02.414 Open wound of arm S41.109A HTN (hypertension) I10 IV drug abuse F19.10 Tobacco dependence F17.200
--- NOTE | 2025-05-14 12:58 | Surgery Progress Note ---
Date of Service May 14, 2025 Assessment & Plan (1) Open wound of arm: Plan: On the imaging the actual fluid collection area is extremely small. It is unclear to me even where it is at amongst all of the swelling and firmness. She does not have a fever and no leukocytosis and therefore I am simply going to observe for 24 to 48 hours on IV antibiotics. If things worsen I may re-image. We are certainly not out of the araya for an incision and drainage but I am going to opt for conservative management at this point in time until the abscess "declares" itself. (2) Abscess of arm, left: Admission and Anticipated Discharge Date Admission Date: May 13, 2025 Subjective Patient seen. Feeling slightly better than yesterday. No new complaints Physical Exam Constitutional: WD/WN, vitals as above no acute distress and not ill appearing Eyes: PERRL, conjunctivae normal, anicteric sclerae EOM intact bilaterally ENMT: external ear and nose normal, oropharynx normal Ears: no hearing impairment Neck: trachea midline, no thyromegaly Respiratory: normal respiratory effort; no respiratory distress and does not use accessory muscles Cardiovascular: Rate/Rhythm: regular rate and regular rhythm Gastrointestinal (Abdomen): normal bowel sounds, soft, nontender, no hepatosplenomegaly Skin: In the antecubital fossa left upper extremity there are multiple sinus tracts. There is no erythema or warmth. There is a horseshoe around the lateral aspect that is tender and firm. No true fluctuance. Psychiatric: Orientation: alert, oriented x 3 and cooperative Results & Data Vital Signs (Past 12 Hours) Vital Signs Temp Pulse Pulse Resp BP Pulse Ox O2 Del Method 05/14/25 11:13 36.5 C 84 16 125/72 96 Room Air 05/14/25 10:00 Room Air 05/14/25 07:37 36.4 C L 85 16 108/54 L 95 Room Air 05/14/25 07:30 78 05/14/25 03:45 36.5 C 94 H 20 117/69 95 Room Air PG Care Time/CCT Total # of Minutes Spent Total Time Spent with Patient: Total time spent is greater than 50% in coordination of care (as documented) at patient's floor/unit and/or counseling patient: Coding Level of Care Code 22277 SUB INP/OBS CARE 07/22MIN Diagnoses Open wound of arm S41.109A Abscess of arm, left L02.414
[2025-05-14] MEDS: VANCOMYCIN HCL 1,250 MG in SODIUM CHLORIDE 0.9% 250 ML IV SCH (15:00)
[2025-05-14] MEDS: LIDOCAINE 1%/EPINEPHRINE 1:100,000 50 ML VIAL INFIL ONE (19:08)
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
[2025-05-15 08:54] LABS: Hematocrit (blood only) 30.0 % (37.0-47.0); Hemoglobin 10.3 g/dL (12.0-16.0); Immature Granulocytes # (auto) 0.01 K/uL (0.01-0.20); Immature Granulocytes % (auto) 0.2 %; Mean Corpuscular Hemoglobin 30.3 pg (25.0-34.0); Mean Corpuscular Volume 88.2 fL (80.0-100.0); Platelet Count 305 K/uL (130-400); RDW Standard Deviation 38.7 fL (36.4-46.3); Red Blood Count 3.40 M/uL (4.20-5.40); White Blood Count 5.41 K/ul (4.8-10.8)
[2025-05-15 09:14] LABS: Alanine Aminotransferase 6.0 U/L (7-52); Albumin Globulin Ratio 1.2 (0.9-2); Albumin Level 3.6 gm/dl (3.4-5.0); Alkaline Phosphatase 52.0 U/L (34-104); Anion Gap 8.0 (3-11); Bilirubin,Total 0.2 mg/dl (0.2-1.0); Blood Urea Nitrogen 12.0 mg/dl (6-23); Calcium 8.9 mg/dl (8.6-10.3); Carbon Dioxide 25.0 mmol/L (21-32); Chloride 106.0 mmol/L (98-107); Creatinine Clr Calc Pharmacy 55.2 ml/min; Globulin 2.9 gm/dl (2.5-4.0); Glucose 152.0 mg/dl (70-99(Fasting)); Potassium 3.6 mmol/L (3.5-5.1); Sodium 139.0 mmol/L (136-145); Total Protein 6.5 gm/dl (6.0-8.3)
[2025-05-15] MEDS: LACTATED RINGER'S 1,000 ML IV SCH (10:46)
--- NOTE | 2025-05-15 10:49 | Hospitalist Progress Note ---
Date of Service May 15, 2025 Assessment & Plan (1) Abscess of arm, left: (2) Open wound of arm: (3) HTN (hypertension): (4) IV drug abuse: Plan This patient is a 35-year-old female with a history of substance use disorder (injectable cocaine, opioids, methamphetamine), depression/anxiety, HTN, asthma, and previously treated hepatitis C, who was admitted with bilateral wound infections in the antecubital fossae bilaterally. Venous Doppler of the bilateral upper extremities negative for DVT but shows complex fluid collection left AC fossa 2.4 x 0.8 x 2.5 cm-possible abscess. No evidence of sepsis on admission, CRP mildly elevated, procalcitonin negative. #Bilateral skin ulceration with underlying fluid collection concerning for abscess- secondary to active IV drug use, possible developing abscess. No sepsis. CRP trending down slightly to 1.7, remains afebrile, no leukocytosis, induration is decreasing but remains. Surgery wanted to hold off on incision and drainage for now but will reassess. Wound culture growing MSSA that is pans ensitive, blood cultures remain no growth to date. No physical evidence of endocarditis - DC IV Zosyn and Vanco and convert to IV cefazolin-can likely convert to p.o. Keflex on discharge - Appreciate general surgery consultation-awaiting reassessment on 05/15 to see if needs incision and drainage - Wound care consult appreciated-continue local wound care in hospital and as an outpatient at wound care center - Follow CBC, CMP, CRP in the a.m. - Follow blood cultures #substance abuse/anxiety/depression-injects cocaine mixed with water into her veins on a daily basis. Has been to rehab in the past and is interested in attending rehab and getting sober. She denies alcohol use or other drug use at this time but in the past has abused opioids and methamphetamines. She is on Suboxone and the dose was confirmed with her Suboxone clinic in [facility]. Last episode of sobriety was 2019 for the of a child - Consult case management for outpatient abstinence resources-they are helping to arrange inpatient rehab stay starting 05/28 at [place] - Consult psychiatry at patient's request-no changes to medications as per patient but awaiting formal consult - Continue Suboxone 8/2 mg SL 3 times daily-she actually takes 3-1/2 sublingual per day at home - Continue BuSpar, fluoxetine, topiramate #Acute kidney injury-creatinine up to 1.55. Possibly due to hypovolemia from being n.p.o. for possible surgery without receiving IV fluids. Also takes lisinopril. Did receive 2 days worth of vancomycin and Zosyn. - Give 1 L of LR - Follow BMP in the a.m. - Hold lisinopril #asthma-no acute issues - continue controller medication, DuoNeb and albuterol as needed - Encourage smoking cessation #hypertension-BP is controlled - continue lisinopril #Current smoker-continue nicotine patch and encourage cessation DVT prophylaxis-heparin SQ Disposition-continued stay on medical/surgical floor, possible DC in the next 1- 2 days if blood cultures remain negative, awaiting decision on incision and drainage by surgery, and if NATALIA resolves Admission and Anticipated Discharge Date Admission Date: May 13, 2025 Subjective Patient feeling better, thinks the swelling in the left arm is improved. Denies pain. She is committed to going to inpatient rehab but cannot go until May 28 as she needs to get back to work before then. She thinks she will be able to stay sober when she goes home as her girlfriend is also going to try to quit using drugs as well. I discussed her care with pharmacy. With regards to her anemia, patient denies heavy menses-she has bleeding for 3 to 4 days and is not heavy. No bleeding from anywhere else. She has never been told before that she was anemic Her right hand is more swollen today and there had been an IV in the right forearm that was removed. She does admit to injecting cocaine mixed with water and multiple sites in her hands and arms but not in her feet. Physical Exam Constitutional: WD/WN, vitals as above Respiratory: normal respiratory effort, lungs clear to auscultation Cardiovascular: RRR, no murmur, no edema Gastrointestinal (Abdomen): normal bowel sounds, soft, nontender, no hepatosplenomegaly Musculoskeletal: Right hand with significant edema, no erythema or drainage. With multiple small scabs from previous injection sites Skin: + lesion (Positive induration surroundin g left AC wound laterally, no fluctuance, imp) and + ulcer (Bilateral AC fossa open wounds draining purulence, no erythema) Psychiatric: A+Ox3, euthymic affect Results & Data Results & Data Vital Signs (Past 12 Hours) Vital Signs Temp Pulse Resp BP Pulse Ox O2 Del Method 05/15/25 07:56 36.5 C 77 18 127/87 94 Room Air Laboratory Results CBC, CMP, CRP, blood cultures, wound culture reviewed PG Care Time/CCT Total # of Minutes Spent Total Time Spent with Patient: Total time spent is greater than 50% in coordination of care (as documented) at patient's floor/unit and/or counseling patient: Coding Level of Care Code 94405 SUB INP/OBS CARE 2/35MIN Diagnoses Abscess of arm, left L02.414 Open wound of arm S41.109A HTN (hypertension) I10 IV drug abuse F19.10
--- NOTE | 2025-05-15 12:28 | Surgery Progress Note ---
Date of Service May 15, 2025 Assessment & Plan (1) Open wound of arm: Plan: Again I think this is more cellulitis than actual fluid collection. She is improving clinically. Continue IV antibiotics. No plans for surgical intervention. Likely discharge home tomorrow on oral antibiotics (2) Abscess of arm, left: Admission and Anticipated Discharge Date Admission Date: May 13, 2025 Subjective Patient seen. Continues to feel better every day. Much less pain in her antecubital fossa. Physical Exam Physical Exam: Alert no acute distress On the left antecubital fossa less erythema. It is still rather firm. Less tenderness. I am unable to express any fluid. Right antecubital fossa unchanged Results & Data Vital Signs (Past 12 Hours) Vital Signs Temp Pulse Resp BP Pulse Ox O2 Del Method 05/15/25 07:56 36.5 C 77 18 127/87 94 Room Air PG Care Time/CCT Total # of Minutes Spent Total Time Spent with Patient: Total time spent is greater than 50% in coordination of care (as documented) at patient's floor/unit and/or counseling patient: Coding Level of Care Code 23167 SUB INP/OBS CARE 07/22MIN Diagnoses Open wound of arm S41.109A Abscess of arm, left L02.414
--- NOTE | 2025-05-15 21:43 | Electrocardiogram Report ---
Test Reason : Blood Pressure : */* mmHG Vent. Rate : 102 BPM Atrial Rate : 102 BPM P-R Int : 152 ms QRS Dur : 80 ms QT Int : 348 ms P-R-T Axes : 43 65 36 degrees QTcB Int : 453 ms Sinus tachycardia Otherwise normal ECG When compared with ECG of 04-Apr-2025 04:25, No significant change was found Confirmed by Bob Rocha ([id number]) on 05/15/2025 9:43:31 PM Referred By: NO PCP Confirmed By: Bob Rocha
[2025-05-16 06:13] LABS: Hematocrit (blood only) 31.4 % (37.0-47.0); Hemoglobin 10.7 g/dL (12.0-16.0); Immature Granulocytes # (auto) 0.01 K/uL (0.01-0.20); Immature Granulocytes % (auto) 0.2 %; Mean Corpuscular Hemoglobin 29.8 pg (25.0-34.0); Mean Corpuscular Volume 87.5 fL (80.0-100.0); Platelet Count 338 K/uL (130-400); RDW Standard Deviation 39.1 fL (36.4-46.3); Red Blood Count 3.59 M/uL (4.20-5.40); White Blood Count 5.76 K/ul (4.8-10.8)
[2025-05-16 06:28] LABS: Alanine Aminotransferase 5.0 U/L (7-52); Albumin Globulin Ratio 1.2 (0.9-2); Albumin Level 3.7 gm/dl (3.4-5.0); Alkaline Phosphatase 47.0 U/L (34-104); Anion Gap 8.0 (3-11); Bilirubin,Total 0.2 mg/dl (0.2-1.0); Blood Urea Nitrogen 10.0 mg/dl (6-23); Calcium 9.4 mg/dl (8.6-10.3); Carbon Dioxide 26.0 mmol/L (21-32); Chloride 106.0 mmol/L (98-107); Creatinine Clr Calc Pharmacy 53.1 ml/min; Globulin 3.2 gm/dl (2.5-4.0); Glucose 90.0 mg/dl (70-99(Fasting)); Iron 46.0 mcg/dl (35-150); Potassium 3.9 mmol/L (3.5-5.1); Sodium 140.0 mmol/L (136-145); Total Iron Binding Cap Calc 315.0 mcg/dl (250-450); Total Protein 6.9 gm/dl (6.0-8.3); Transferrin 225.0 mg/dl (200-360); Transferrin (FE) Percent Satur 15.0 % (15-50)
[2025-05-16 06:42] LABS: Thyroid Stimulating Hormone 0.471 uIu/ml (0.300-4.500)
[2025-05-16 06:48] LABS: Ferritin 26.4 ng/ml (8-388)
[2025-05-16 06:56] LABS: Folate (Folic Acid),Ser orPlas 8.45 ng/ml (>5.38)
[2025-05-16 06:57] LABS: Vitamin B12 147.0 pg/ml (180-914)
[2025-05-16] MEDS: CYANOCOBALAMIN 1000 MCG/ML VIAL IM ONE (08:58)
[2025-05-16] MEDS: LACTATED RINGER'S 1,000 ML IV SCH (08:59)
[2025-05-16] MEDS: FERROUS GLUCONATE 324 MG TAB PO SCH (09:06)
--- NOTE | 2025-05-16 10:50 | Surgery Progress Note ---
Date of Service May 16, 2025 Assessment & Plan (1) Open wound of arm: Plan: Patients L antecubital region appears to be improving each day on IV abx WBC 5.7, afebrile Appreciate wound cares recommendations From our standpoint would complete a course of antibiotics for infection as this was likely more a cellulitis reaction; cultures growing staph aureus No plans for I&D at this time May d/c when cleared by medicine We will follow peripherally, please call with any questions/concerns. Admission and Anticipated Discharge Date Admission Date: May 13, 2025 Subjective Patient reports left forearm is feeling better and redness is also improving Physical Exam Physical Exam: awake, alert, no distress Skin: L forearm antecubital region w/ fading erythema, some induration noted superiorly but overall improved. tenderness improved. Results & Data Vital Signs (Past 12 Hours) Vital Signs Temp Pulse Resp BP Pulse Ox O2 Del Method 05/16/25 07:46 98.1 F 77 14 120/80 96 Room Air 05/15/25 23:00 98.2 F 82 14 132/88 95 Room Air PG Care Time/CCT Total # of Minutes Spent Total Time Spent with Patient: Total time spent is greater than 50% in coordination of care (as documented) at patient's floor/unit and/or counseling patient: Coding Level of Care Code 74805 SUB INP/OBS CARE 07/22MIN Diagnoses Open wound of arm S41.109A
[2025-05-16 15:57] LABS: Anion Gap 8.0 (3-11); Calcium 8.8 mg/dl (8.6-10.3); Carbon Dioxide 25.0 mmol/L (21-32); Chloride 105.0 mmol/L (98-107); Potassium 4.3 mmol/L (3.5-5.1); Sodium 138.0 mmol/L (136-145)
[2025-05-16 16:02] LABS: Blood Urea Nitrogen 11.0 mg/dl (6-23); Creatinine Clr Calc Pharmacy 50.0 ml/min; Glucose 97.0 mg/dl (70-99(Fasting))
--- NOTE | 2025-05-16 17:11 | Hospitalist Progress Note ---
Date of Service May 16, 2025 Assessment & Plan (1) Abscess of arm, left: (2) Open wound of arm: (3) B12 deficiency anemia: (4) Iron deficiency anemia: Plan This patient is a 35-year-old female with a history of substance use disorder (injectable cocaine, opioids, methamphetamine), depression/anxiety, HTN, asthma, and previously treated hepatitis C, who was admitted with bilateral wound infections in the antecubital fossae bilaterally. Venous Doppler of the bilateral upper extremities negative for DVT but shows complex fluid collection left AC fossa 2.4 x 0.8 x 2.5 cm-possible abscess. No evidence of sepsis on admission, CRP mildly elevated, procalcitonin negative. #Bilateral skin ulceration with underlying fluid collection concerning for abscess- secondary to active IV drug use, possible developing abscess. No sepsis. CRP continues to trend downward to 1.4, remains afebrile, no leukocytosis, induration is decreasing but remains, no erythema and drainage is decreasing. Surgery recommends against incision and drainage as seems to be improving with IV antibiotics alone. Wound culture growing MSSA that is pansensitive, but not finalized. Blood cultures remain no growth to date. No physical evidence of endocarditis. She was initially treated with IV Zosyn and Vanco and the end converted to IV cefazolin -Continue IV cefazolin for now and can convert to p.o. Augmentin on discharge to finish out a 10-day course - Appreciate general surgery consultation - Wound care consult appreciated-continue local wound care in hospital and as an outpatient at wound care center - Follow CBC, BMP in the a.m. - Follow blood cultures #substance abuse/anxiety/depression-injects cocaine mixed with water into her veins on a daily basis. Has been to rehab in the past and is interested in attending rehab and getting sober. She denies alcohol use or other drug use at this time but in the past has abused opioids and methamphetamines. She is on Suboxone and the dose was confirmed with her Suboxone clinic in [facility]. Last episode of sobriety was 2019 for the of a child - Consult case management for outpatient abstinence resources-they are helping to arrange inpatient rehab stay starting 05/28 at [place] - Consult psychiatry -no changes to medications at this time-defer to inpatient rehab where she will be going in 2 weeks - Continue Suboxone 8/2 mg SL 3 times daily-she actually takes 3-1/2 sublingual per day at home - Continue BuSpar, fluoxetine, topiramate, Abilify, Wellbutrin #Acute kidney injury-creatinine up further to 1.6 1 in the morning and after 1 L fluid, went up further to 1 point 7 in the afternoon. Initially thought to be possibly due to hypovolemia from being n.p.o. for possible surgery without receiving IV fluids on 05/14 but not improving with IV fluids. She did receive 2 days worth of vancomycin and Zosyn and perhaps could have drug-induced kidney injury? Also takes lisinopril which has now been held since 05/15. She is making urine and has no other electrolyte abnormalities. - Check postvoid residual bladder scan - Follow BMP again in the a.m. - Continue to hold lisinopril #Vitamin B12 and iron deficiency anemia-Hgb low but stable at 10.7. Iron studies show transferrin saturation low at 15%, ferritin low at 26, B12 very low at 147, and folate normal at 8.4. TSH normal at 0.47. No bleeding from anywhere - Start B12 1000 mcg IM x 1 followed by B12 1000 mcg p.o. once daily - Start ferrous gluconate 300 mg p.o. once daily - Follow as an outpatient - Consider GI referral as an outpatient but suspect this is likely a nutritional issue #asthma-no acute issues - continue controller medication, DuoNeb and albuterol as needed - Encourage smoking cessation #hypertension-BP is controlled - Hold lisinopril for NATALIA - Encouraged cocaine cessation as this could cause hypertension #Current smoker-continue nicotine patch and encourage cessation DVT prophylaxis-heparin SQ Disposition-continued stay on medical/surgical floor, possible DC tomorrow if NATALIA improving Admission and Anticipated Discharge Date Admission Date: May 13, 2025 Subjective Patient feels well, is voiding, eating and drinking like normal. Has no pain at the sites of her wounds in the arms. No other complaints. Physical Exam Constitutional: WD/WN, vitals as above Respiratory: normal respiratory effort, lungs clear to auscultation Cardiovascular: RRR, no murmur, no edema Gastrointestinal (Abdomen): normal bowel sounds, soft, nontender, no hepatosplenomegaly Skin: + lesion (Positive induration surroundin g left AC wound laterally improving) and + ulcer (Bilateral AC fossa open wounds draining purulence, no erythema) Psychiatric: A+Ox3, euthymic affect Results & Data Results & Data Vital Signs (Past 12 Hours) Vital Signs Temp Pulse Resp BP Pulse Ox O2 Del Method 05/16/25 16:00 36.8 C 82 16 125/86 96 Room Air 05/16/25 07:46 36.7 C 77 14 120/80 96 Room Air Laboratory Results CBC, BMP x 2, TSH, iron studies, B12, folate, LFTs, CRP reviewed PG Care Time/CCT Total # of Minutes Spent Total Time Spent with Patient: Total time spent is greater than 50% in coordination of care (as documented) at patient's floor/unit and/or counseling patient: Coding Level of Care Code 42879 SUB INP/OBS CARE 2/35MIN Diagnoses Abscess of arm, left L02.414 Open wound of arm S41.109A B12 deficiency anemia D51.9 Iron deficiency anemia D50.9
[2025-05-17 06:11] LABS: Anion Gap 8.0 (3-11); Blood Urea Nitrogen 11.0 mg/dl (6-23); Calcium 9.6 mg/dl (8.6-10.3); Carbon Dioxide 27.0 mmol/L (21-32); Chloride 105.0 mmol/L (98-107); Creatinine Clr Calc Pharmacy 54.1 ml/min; Glucose 87.0 mg/dl (70-99(Fasting)); Potassium 4.0 mmol/L (3.5-5.1); Sodium 140.0 mmol/L (136-145)
[2025-05-17 07:29] LABS: Hematocrit (blood only) 32.1 % (37.0-47.0); Hemoglobin 11.0 g/dL (12.0-16.0); Mean Corpuscular Hemoglobin 30.2 pg (25.0-34.0); Mean Corpuscular Volume 88.2 fL (80.0-100.0); RDW Standard Deviation 39.7 fL (36.4-46.3); Red Blood Count 3.64 M/uL (4.20-5.40); White Blood Count 5.45 K/ul (4.8-10.8)
[2025-05-17 07:37] LABS: Platelet Count 318 K/uL (130-400)
[2025-05-17 07:45] LABS: Immature Granulocytes # (auto) 0.04 K/uL (0.01-0.20); Immature Granulocytes % (auto) 0.7 %
[2025-05-17 08:08] VITALS: BP 119/78; PULSE 81; RESP 14; TEMP 98.1; O2SAT 96
[2025-05-17] MEDS: CYANOCOBALAMIN (B-12) 500 MCG TABLET PO SCH (09:40)
--- NOTE | 2025-05-17 10:33 | Discharge Summary ---
Discharge Summary Date of Service May 17, 2025 Principal Dx & Hospital Course #1 = Principal Diagnosis (1) Abscess of arm, left: (2) Open wound of arm: (3) B12 deficiency anemia: (4) Iron deficiency anemia: Plan This patient is a 35-year-old female with a history of substance use disorder (injectable cocaine, opioids, methamphetamine), depression/anxiety, HTN, asthma, and previously treated hepatitis C, who was admitted with bilateral wound infections in the antecubital fossae bilaterally. Venous Doppler of the bilateral upper extremities negative for DVT but shows complex fluid collection left AC fossa 2.4 x 0.8 x 2.5 cm-possible abscess. No evidence of sepsis on admission, CRP mildly elevated, procalcitonin negative. #Bilateral skin ulceration with underlying fluid collection concerning for ab scess- secondary to active IV drug use, possible developing abscess. No sepsis. CRP continues to trend downward to 1.4, remains afebrile, no leukocytosis, induration is decreasing but remains somewhat, no erythema and drainage is decreasing. Surgery recommends against incision and drainage as seems to be improving with IV antibiotics alone. Wound culture growing MSSA that is pansen sitive, but not finalized-if anything els grows, likely would be an anaerobe at this point. Blood cultures remain no growth to date. No physical evidence of endocarditis. She was initially treated with IV Zosyn and Vanco and then converted to IV cefazolin -convert to p.o. Augmentin on discharge to finish out a 10-day course - Appreciate general surgery consultation - Wound care consult appreciated-continue local wound care as an outpatient at wound care center - Follow BMP in 4-5 days as outpt for renal function - Follow blood cultures-remain NGTD #Substance use disorder/anxiety/depression-injects cocaine mixed with water into her veins on a daily basis. Has been to rehab in the past and is interested in attending rehab and getting sober. She denies alcohol use or other drug use at this time but in the past has abused opioids and methamphetamines. She is on Suboxone and the dose was confirmed with her Suboxone clinic in [facility]. Last episode of sobriety was 2019 for the of a child - Consult case management for outpatient abstinence resources-they are helping to arrange inpatient rehab stay starting 05/28 at [facility] - Consult psychiatry -no changes to medications at this time-defer to inpatient rehab where she will be going in 2 weeks - Continue Suboxone 8/2 mg SL 3 times daily-she actually takes 3-1/2 sublingual per day at home - Continue BuSpar, fluoxetine, topiramate, Abilify, Wellbutrin #Acute kidney injury-creatinine peaked at 1.7 despite IVFs. Initially thought to be possibly due to hypovolemia from being n.p.o. for possible surgery without receiving IV fluids on 05/14 but did not improve with IV fluids. She did receive 2 days worth of vancomycin and Zosyn and perhaps could have drug-induced kidney injury? Also takes lisinopril which has now been held since 05/15. She is making urine and has no other electrolyte abnormalities. Her post void bladder scan was 0 mL-no retention. Block Paver improved to 1.58 on day of discharge. -encouraged po hydration after discharge - Follow BMP in 4-5 days as an outpt-defer to PCP to order labs - Continue to hold lisinopril #Vitamin B12 and iron deficiency anemia-Hgb low but stable at 10-11. Iron studies show transferrin saturation low at 15%, ferritin low at 26, B12 very low at 147, and folate normal at 8.4. TSH normal at 0.47. No bleeding from anywhere - Started B12 1000 mcg IM x 1 followed by B12 1000 mcg p.o. once daily - Started ferrous gluconate 300 mg p.o. once daily - Follow as an outpatient - Consider GI referral as an outpatient for EGD/colonoscopy, but suspect this is likely a nutritional issue vs poor absorption rather than malignancy #asthma-no acute issues - continue controller medication, DuoNeb and albuterol as needed - Encourage smoking cessation #hypertension-BP is controlled despite being off lisinopril for 2-3 days - continue to hold lisinopril for NATALIA - Encouraged cocaine cessation as this could cause hypertension #Current smoker-continue nicotine patch and encourage cessation DVT prophylaxis-heparin SQ Disposition-dc to home Notes For Next Care Provider Check BMP in 4-5 days with PCP Medication Changes From Visit see med list Admission HPI Per Admitting Provider 35-year-old female history of recurrent relapsing substance abuse, cocaine dependence, anxiety, depression, mild asthma, hypertension presents to the emergency department with open wounds on the antecubital fossa of her arms bilaterally. Patient states she has been openly injecting liquid cocaine and her veins persistently for the last several weeks to months. She has been dealing with these wounds on and off through the wound care clinic for several months but states persistently they have gotten worse over the last several weeks. She is noticing pain in discomfort underneath the left side of her arm. She denies any fevers or chills nausea or vomiting. No generalized signs of illness. States she has previously been sober but not since 2019. She has previously followed with a detox and safe house program. She has not had any recent significant withdrawal symptoms other than fatigue for not using. She uses a controller inhaler regularly. Has not needed a rescue inhaler much. Otherwise no recent changes to medications. She does report Suboxone. It is not in the PDMP at this time. Initial evaluation in the emergency department shows open ulcerations on the antecubital fossa bilaterally with surrounding erythema induration and deep ulceration. She was referred for admission for IV antibiotics. Wound care consultation, surgical consultation for possible debridement. Case management consultation for abstinence and detox programs. Discharge Exam Constitutional WD/WN, vitals as above Respiratory normal respiratory effort, lungs clear to auscultation Cardiovascular RRR, no murmur, no edema Gastrointestinal (Abdomen) normal bowel sounds, soft, nontender, no hepatosplenomegaly Skin + lesion (Positive induration surrounding left AC wound laterally improving) and + ulcer (Bilateral AC fossa open wounds draining purulence, no erythema) Psychiatric A+Ox3, euthymic affect Discharge Plan Discharge Items Patient Disposition: Home - Self-Care Reason For Visit: CELLULITIS Discharge Diagnosis: Left arm cellulitis, right arm cellulitis Left arm small abscess Cocaine use disorder Acute kidney injury Vitamin B12 deficiency anemia Iron deficiency anemia Condition on Discharge: Good Activity: Resume your previous activity Non-emergency contact: Primary Care Provider Call non-emergency contact if: you have any medication questions, your symptoms worsen, your pain is not controlled, you have a fever, your wound has increased redness, your wound has increased drainage and your wound pain has increased Follow-up/Referrals: Carolin Neil DO, FACEP [Physician] - 05/23/25 1:00 pm (Wound Care Ap pointment) Rede Gunderson DO [Primary Care Provider] - 05/18/25 11:20 am (Please follow-up within 1-2 weeks.) Diet: Regular Addtl Attending Provider Instructions: Please continue the antibiotic called amoxicillin/clavulanate twice a day for 7 more days for the infection in your arms. Continue the daily dressing changes and follow-up with the wound care center. This appointment will be arranged for you. It is very important that you no longer inject drugs as this puts you at high risk for infections that can spread to the heart and anywhere in the body through the bloodstream. Cocaine can also cause heart attacks and high blood pressure as you probably know. I wish you the best in your endeavor to remain sober and to attend inpatient rehab at [facility] in the upcoming weeks. You had some acute kidney injury while you were here and this was treated with IV fluids. Your lisinopril will be held on discharge. Please have your kidney function repeated with your primary care physician in 1 week after discharge. You are anemic and were found to be severely B12 deficient as well as iron deficient. You were given an injection of vitamin B12 and should continue on oral B12 daily on discharge. You are also started on oral iron tablets. Please follow-up with your primary care physician for further workup of the anemia. It was a pleasure taking care of you! If you have any questions about your care before your hospital follow-up visit with your primary care provider, please call [phone] and ask to be transferred to the [facility] Medicine office. Sincerely, Denise Torres M.D. Pending Studies at Discharge: Yes (Final blood cultures-no growth to date) Stand-Alone Forms: My [facility], Smoking Cessation Medications and DC Order Prescriptions: New amoxicillin-pot clavulanate 875-125 mg tablet 1 tab PO BID Qty: 14 0RF cyanocobalamin (vitamin B-12) 1,000 mcg tablet 1,000 mcg PO DAILY Qty: 30 0RF Rx Instructions: Hrgo-olb-tecumek ferrous gluconate 324 mg (38 mg iron) Tablet 324 mg PO QAM Qty: 30 0RF Rx Instructions: Ijuo-api-zaznnew nicotine [Nicoderm CQ] 21 mg/24 hr Patch 24 Hour 1 patch transdermal QAM Qty: 14 0RF Rx Instructions: Ywoe-brf-xzegyto Continued buspirone 10 mg tablet 10 mg PO BID Qty: 180 1RF aripiprazole [Abilify] 10 mg tablet 10 mg PO QAM Qty: 90 1RF fluoxetine 40 mg capsule 40 mg PO QAM Qty: 90 1RF bupropion HCl 150 mg tablet extended release 24 hr 150 mg PO QAM Qty: 30 2RF buprenorphine-naloxone 8-2 mg Tablet, Sublingual 1 tab sublingual TID Qty: 0 0RF fluticasone furoate-vilanterol [Breo Ellipta] 100-25 mcg/dose Blister With Device 1 inh inhalation DAILY Qty: 1 0RF topiramate 25 mg Tablet 25 mg PO HS Qty: 1 0RF albuterol sulfate [Ventolin HFA] 90 mcg/actuation HFA aerosol inhaler 2 inh inhalation Q4H PRN (Reason: shortness of breath or wheezing or cough) Qty: 6.7 0RF Rx Instructions: use with spacer device Held lisinopril 10 mg Tablet 10 mg PO QAM Qty: 1 0RF Hold Instructions: Resume on 05/23/25. Hold until your primary care doctor tells you it is safe to resume this after rechecking your kidney function in 1 week. Discharge Orders: Discharge Order (Routine); Ordered 05/17/25 Ordered By: Denise Torres Admission Data Admit Date/Time: 05/13/25 19:11 Attending Provider: Denise Torres Admit Provider: Rainer Saldivar Primary Care Provider: Reed Gunderson Other Providers: Cedric Kitchen; Ludin Miranda; Eva Gupta; Ludin Moura; Aliyah Herndon; Louisa Buckner; Jeffery Ortiz; Alfonso Bennett; Madina Upton; Alee Lei Hospital Stay Data Consultations 05/13/25 18:51 ED Decision to Admit Stat 05/13/25 21:52 Consult General Surgery Routine 05/14/25 18:02 Consult Psychiatry Routine Diagnostic Imagining Performed 05/13/25 15:31 US venous doppler UE BI Stat Pending Results Patient Have Any Pending Studies at Discharge: Yes (Final blood cultures-no growth to date) Discharge Instructions Given to Patient (Per Discharging Provider) Please continue the antibiotic called amoxicillin/clavulanate twice a day for 7 more days for the infection in your arms. Continue the daily dressing changes and follow-up with the wound care center. This appointment will be arranged for you. It is very important that you no longer inject drugs as this puts you at high risk for infections that can spread to the heart and anywhere in the body through the bloodstream. Cocaine can also cause heart attacks and high blood pressure as you probably know. I wish you the best in your endeavor to remain sober and to attend inpatient rehab at [facility] in the upcoming weeks. You had some acute kidney injury while you were here and this was treated with IV fluids. Your lisinopril will be held on discharge. Please have your kidney function repeated with your primary care physician in 1 week after discharge. You are anemic and were found to be severely B12 deficient as well as iron deficient. You were given an injection of vitamin B12 and should continue on oral B12 daily on discharge. You are also started on oral iron tablets. Please follow-up with your primary care physician for further workup of the anemia. It was a pleasure taking care of you! If you have any questions about your care before your hospital follow-up visit with your primary care provider, please call [phone] and ask to be transferred to the [facility] Medicine office. Sincerely, Denise Torres M.D. Total Time Total Time Spent Total Time Spent (In Minutes): 35 min Total Time Includes: Examination of the Patient, Discharge Planning and Medication Reconciliation Coding Level of Care Code 38041 INP/OBS DISCH >30 MIN Diagnoses Abscess of arm, left L02.414 Open wound of arm S41.109A B12 deficiency anemia D51.9 Iron deficiency anemia D50.9
== END 2025-05-17 11:36 | disposition home or self-care (01) | DRG 603 ==
LOC: SUATTDRO → ED 14:51 → SUATTDRO 19:11 → 2W 19:11 → 3E 05-14 22:46